=== PATIENT | male | born 1945 | race Caucasian/White ===

== ENCOUNTER → 2017-09-03 | Outpatient (CLI) | payer OTHER ==
[~2017-09-03] MED LIST: ASPI325 PO; ASPI81CH PO; ATOR40TA; Amlodipine Besy10 MG PO; BUDE6HFA INH; CHOL10002 PO; CLOP75 PO; DOCU100 PO; FLUSAL2505; FLUT1DIS5 INH; Flonase 0.05% N16 GM INH; GLIM2 PO; Janumet 50-5001 EACH; LEVSOD75 PO; LOSA50; LOSA50 PO; TRADJENTA5 MG PO
[2017-09-03 14:00] LABS: BASOPHILS ABSOLUTE AUTO 0.22 K/mm3 (0.00-0.23); BASOPHILS PERCENT AUTO 2 % (0-2); EOSINOPHILS PERCENT AUTO 15 % (0-6); Hematocrit 37.7 % (37.0-53.0); Hemoglobin 12.7 g/dL (13.5-17.5); IMMATURE GRAN ABSOLUTE AUTO 0.03 K/mm3 (0.00-0.10); IMMATURE GRAN PERCENT AUTO 0 % (0-1); LYMPHOCYTES ABSOLUTE AUTO 1.97 K/mm3 (0.84-5.20); LYMPHOCYTES PERCENT AUTO 22 % (21-46); MONOCYTES ABSOLUTE AUTO 0.91 K/mm3 (0.16-1.47); MONOCYTES PERCENT AUTO 10 % (4-13); Mean Corpuscular HGB 31.4 pg (26.0-34.0); Mean Corpuscular HGB Conc 33.7 g/dL (31.5-36.5); Mean Corpuscular Volume 93 fL (80-100); NEUTROPHILS ABSOLUTE AUTO 4.56 K/mm3 (1.96-9.15); NEUTROPHILS PERCENT AUTO 50 % (41-73); Platelet Count 252 K/mm3 (150-400); RDW Coefficient Variation 13.6 % (11.7-14.2); RDW Standard Deviation 46.5 fL (35.1-46.3); Red Blood Cell Count 4.04 M/mm3 (4.30-5.90); White Blood Cell Count 9.09 K/mm3 (4.00-11.30)
[2017-09-03 14:12] LABS: Albumin, Blood 3.3 g/dL (3.4-5.0); Albumin/Globulin Ratio 0.9 (0.8-1.8); Bilirubin, Total 0.7 mg/dL (0.1-1.0); Calcium, Blood 8.3 mg/dL (8.5-10.1); Creatinine, Blood 1.54 mg/dL (0.60-1.20); Globulin, Blood 3.8 g/dL (2.2-4.0); Total Protein, Blood 7.1 g/dL (6.4-8.2); Troponin I 0.032 ng/mL (0.000-0.040)
== END | disposition home or self-care (01) ==
LOC: LAB EV 13:53 → LAB SHORT 13:53
PROVIDERS: General Practice
DX: R06.02 Shortness of breath (principal)
CPT/HCPCS: 80053; 82550; 83880; 84484; 85025

== ENCOUNTER 2017-09-14 07:24 | Day surgery (SDC) | payer OTHER ==
[~2017-09-14] VITALS: Ht 175.3 cm; Wt 79.0 kg
[~2017-09-14 07:24] MED LIST changes: -ASPI81CH PO; -BUDE6HFA INH; -CLOP75 PO; -DOCU100 PO; -FLUT1DIS5 INH
[2017-09-14] MEDS ORDERED: FLUT1DIS5 INH (07:48)
== END 2017-09-14 14:15 | disposition home or self-care (01) ==
LOC: MHTC 07:24
PROC: B2111ZZ Fluoroscopy of Multiple Coronary Arteries using Low Osmolar Contrast (ICD-10-PCS; principal; 2017-09-14)
DX: I35.0 Nonrheumatic aortic (valve) stenosis (principal); I25.10 Atherosclerotic heart disease of native coronary artery without angina pectoris; I11.0 Hypertensive heart disease with heart failure; I50.20 Unspecified systolic (congestive) heart failure; E11.9 Type 2 diabetes mellitus without complications; I42.8 Other cardiomyopathies; E78.5 Hyperlipidemia, unspecified; I67.9 Cerebrovascular disease, unspecified; E03.9 Hypothyroidism, unspecified; N40.0 Benign prostatic hyperplasia without lower urinary tract symptoms; R59.9 Enlarged lymph nodes, unspecified; Z79.899 Other long term (current) drug therapy; Z79.82 Long term (current) use of aspirin; Z79.84 Long term (current) use of oral hypoglycemic drugs; Z87.891 Personal history of nicotine dependence
CPT/HCPCS: 82947; 93454; 99152; 99153; C1769; C1894; J0690; J1644; J2250; J3010; J7030; Q9967

== ENCOUNTER 2017-10-12 21:15 | Emergency (ER) | payer OTHER ==
[~2017-10-12] VITALS: Ht 172.7 cm; Wt 74.8 kg
[~2017-10-12 21:15] MED LIST changes: +FLUT1DIS5 INH
[2017-10-12] MEDS ORDERED: ASPI81CH PO (22:03)
[2017-10-12] MEDS ORDERED: BUDE6HFA INH (22:04)
[2017-10-12] MEDS ORDERED: CLOP75 PO (22:04)
[2017-10-12] MEDS ORDERED: DOCU100 PO (22:05)
[2017-10-12 22:59] LABS: BASOPHILS ABSOLUTE AUTO 0.18 K/mm3 (0.00-0.23); BASOPHILS PERCENT AUTO 2 % (0-2); EOSINOPHILS ABSOLUTE AUTO 0.71 K/mm3 (0.00-0.68); EOSINOPHILS PERCENT AUTO 7 % (0-6); Hematocrit 30.7 % (37.0-53.0); Hemoglobin 10.1 g/dL (13.5-17.5); IMMATURE GRAN ABSOLUTE AUTO 0.03 K/mm3 (0.00-0.10); IMMATURE GRAN PERCENT AUTO 0 % (0-1); LYMPHOCYTES ABSOLUTE AUTO 1.96 K/mm3 (0.84-5.20); LYMPHOCYTES PERCENT AUTO 20 % (21-46); MONOCYTES ABSOLUTE AUTO 0.86 K/mm3 (0.16-1.47); MONOCYTES PERCENT AUTO 9 % (4-13); Mean Corpuscular HGB 30.8 pg (26.0-34.0); Mean Corpuscular HGB Conc 32.9 g/dL (31.5-36.5); Mean Corpuscular Volume 94 fL (80-100); Mean Platelet Volume 10.9 fL (9.1-12.4); NEUTROPHILS ABSOLUTE AUTO 6.17 K/mm3 (1.96-9.15); NEUTROPHILS PERCENT AUTO 62 % (41-73); Platelet Count 184 K/mm3 (150-400); RDW Coefficient Variation 13.2 % (11.7-14.2); RDW Standard Deviation 45.8 fL (35.1-46.3); Red Blood Cell Count 3.28 M/mm3 (4.30-5.90); White Blood Cell Count 9.91 K/mm3 (4.00-11.30)
== END 2017-10-13 00:07 | disposition home or self-care (01) ==
LOC: ER 21:15
PROVIDERS: Emergency Medicine
DX: I97.618 Postprocedural hemorrhage of a circulatory system organ or structure following other circulatory system procedure (principal); E11.9 Type 2 diabetes mellitus without complications; Z79.899 Other long term (current) drug therapy; Z79.82 Long term (current) use of aspirin; Z79.84 Long term (current) use of oral hypoglycemic drugs
CPT/HCPCS: 36415; 85025; 93926; 99284

== ENCOUNTER → 2017-12-20 | Outpatient (CLI) | payer OTHER ==
[~2017-12-20] MED LIST changes: +ASPI81CH PO; +BUDE6HFA INH; +CLOP75 PO; +DOCU100 PO
== END ==
LOC: LAB SHORT 16:00 → LAB EV 16:00
DX: E11.22 Type 2 diabetes mellitus with diabetic chronic kidney disease (principal); N18.9 Chronic kidney disease, unspecified
CPT/HCPCS: 82043

== ENCOUNTER 2018-12-06 10:47 | Day surgery (SDC) | payer OTHER ==
[~2018-12-06] VITALS: Ht 175.3 cm; Wt 171.6 kg
[~2018-12-06 10:47] MED LIST changes: -ATOR40TA; +ATOR40TA PO; +Amlodipine Bes2.5 MG PO; +FLUT1DIS8 INH; +LEVSOD100 PO; +METO25ER PO
--- NOTE | 2018-12-06 11:31 | NUR ---
12/06/18 1131 Inderjit Millan DURING PREVIOUS COLONOSCOPY IN 2014 FENTANYL/ VERSED SEDATION USED. THIS WAS PREVIOUS TO TAVR SX IN 09/[address] MANNING NOTIFIED. PT PRE-OP VSS. PER DR MANNING OK TO PROCEED WITH NURSE ADMINISTERED PROPOFOL DEEP SEDATION PER DR. MANNING.
--- NOTE | 2018-12-06 12:00 | NUR ---
12/06/18 1200 Grace Wray INJECTED INTO IRRIGATION DONNA PER DR COSTA
== END 2018-12-06 13:04 | disposition home or self-care (01) ==
LOC: ORSCSDS 10:47
PROVIDERS: Internal Medicine Gastroenterology
PROC: 0DBM8ZX Excision of Descending Colon, Via Natural or Artificial Opening Endoscopic, Diagnostic (ICD-10-PCS; principal; 2018-12-06 12:00)
PROC: 0DBL8ZX Excision of Transverse Colon, Via Natural or Artificial Opening Endoscopic, Diagnostic (ICD-10-PCS; principal; 2018-12-06 12:00)
PROC: 0DBK8ZX Excision of Ascending Colon, Via Natural or Artificial Opening Endoscopic, Diagnostic (ICD-10-PCS; principal; 2018-12-06 12:00)
DX: K62.5 Hemorrhage of anus and rectum (principal); D12.2 Benign neoplasm of ascending colon; D12.3 Benign neoplasm of transverse colon; D12.4 Benign neoplasm of descending colon; K64.8 Other hemorrhoids; K57.30 Diverticulosis of large intestine without perforation or abscess without bleeding; Z86.010 Personal history of colon polyps; E11.9 Type 2 diabetes mellitus without complications; I10 Essential (primary) hypertension; E78.5 Hyperlipidemia, unspecified; E03.9 Hypothyroidism, unspecified; I25.10 Atherosclerotic heart disease of native coronary artery without angina pectoris; J45.909 Unspecified asthma, uncomplicated; Z79.01 Long term (current) use of anticoagulants; Z79.84 Long term (current) use of oral hypoglycemic drugs; Z79.899 Other long term (current) drug therapy; Z87.891 Personal history of nicotine dependence
CPT/HCPCS: 82947; 88305; J1980; J2704; J7120

== ENCOUNTER 2018-12-11 06:03 | Inpatient (IN) | payer OTHER ==
[~2018-12-11] VITALS: Ht 175.3 cm; Wt 78.5 kg
[~2018-12-11 06:03] MED LIST changes: +Amaryl1 MG PO; -Flonase 0.05% N16 GM INH; -GLIM2 PO; -LOSA50 PO; +LOSARTAN POTASS25 MG PO
[2018-12-11 06:57] LABS: BASOPHILS ABSOLUTE AUTO 0.18 K/mm3 (0.00-0.23); BASOPHILS PERCENT AUTO 2 % (0-2); EOSINOPHILS ABSOLUTE AUTO 1.17 K/mm3 (0.00-0.68); EOSINOPHILS PERCENT AUTO 11 % (0-6); Hematocrit 43.9 % (37.0-53.0); Hemoglobin 14.3 g/dL (13.5-17.5); IMMATURE GRAN ABSOLUTE AUTO 0.02 K/mm3 (0.00-0.10); IMMATURE GRAN PERCENT AUTO 0 % (0-1); LYMPHOCYTES ABSOLUTE AUTO 1.49 K/mm3 (0.84-5.20); LYMPHOCYTES PERCENT AUTO 14 % (21-46); MONOCYTES ABSOLUTE AUTO 0.78 K/mm3 (0.16-1.47); MONOCYTES PERCENT AUTO 7 % (4-13); Mean Corpuscular HGB 30.8 pg (26.0-34.0); Mean Corpuscular HGB Conc 32.6 g/dL (31.5-36.5); Mean Corpuscular Volume 95 fL (80-100); Mean Platelet Volume 10.3 fL (9.1-12.4); NEUTROPHILS ABSOLUTE AUTO 6.86 K/mm3 (1.96-9.15); NEUTROPHILS PERCENT AUTO 65 % (41-73); Platelet Count 217 K/mm3 (150-400); RDW Coefficient Variation 12.8 % (11.7-14.2); RDW Standard Deviation 44.3 fL (35.1-46.3); Red Blood Cell Count 4.64 M/mm3 (4.30-5.90)
[2018-12-11 07:10] LABS: Albumin, Blood 3.6 g/dL (3.4-5.0); Albumin/Globulin Ratio 0.9 (0.8-1.8); Bilirubin, Total 0.5 mg/dL (0.1-1.0); Bun/Creatinine Ratio 17.5 (12.0-20.0); Calcium, Blood 8.8 mg/dL (8.5-10.1); Creatinine, Blood 1.37 mg/dL (0.60-1.20); Globulin, Blood 4.1 g/dL (2.2-4.0); Potassium, Blood 4.1 mmol/L (3.5-5.5); Total Protein, Blood 7.7 g/dL (6.4-8.2)
[2018-12-11] MEDS ORDERED: Flonase 0.05% N16 GM (13:46)
--- NOTE | 2018-12-11 17:05 | NUR ---
SUMMARY PT ADMITTED FROM THE ER FOR POSSIBLE CVA, PT ABLE TO STAND-PIVOT TRANSFER FROM THE GURNEY TO THE BED, GAIT APPEARED WEAK, PT'S CATERPILLAR DRIVER ARE STRONG WITH THE R HAND BEING SLIGHTLY WEAKER THAN THE LEFT, FEET ARE EQUALLY STRONG, PUPILS ARE EQUAL AND REACTIVE, PT'S SPEECH IS SLURRED AND PT SEEMS TO HAVE SOME EXPRESSIVE APHASIA, MULTIPLE FAMILY MEMBERS HAVE BEEN IN TO VISIT, PT ORIENTED TO THE ROOM AND CALL SYSTEM, EDUCATED THE PT ABOUT FALL PREVENTION AND THE IMPORTANCE OF USING THE CALL LIGHT, VS, NO ACUTE CHANGES, WILL CONT TO MONITOR
[2018-12-12 05:23] LABS: BASOPHILS ABSOLUTE AUTO 0.15 K/mm3 (0.00-0.23); BASOPHILS PERCENT AUTO 2 % (0-2); EOSINOPHILS ABSOLUTE AUTO 0.89 K/mm3 (0.00-0.68); EOSINOPHILS PERCENT AUTO 9 % (0-6); IMMATURE GRAN ABSOLUTE AUTO 0.02 K/mm3 (0.00-0.10); IMMATURE GRAN PERCENT AUTO 0 % (0-1); LYMPHOCYTES ABSOLUTE AUTO 1.66 K/mm3 (0.84-5.20); LYMPHOCYTES PERCENT AUTO 17 % (21-46); MONOCYTES ABSOLUTE AUTO 1.01 K/mm3 (0.16-1.47); MONOCYTES PERCENT AUTO 10 % (4-13); Mean Corpuscular HGB 30.9 pg (26.0-34.0); Mean Corpuscular HGB Conc 33.3 g/dL (31.5-36.5); Mean Corpuscular Volume 93 fL (80-100); Mean Platelet Volume 10.4 fL (9.1-12.4); NEUTROPHILS ABSOLUTE AUTO 6.36 K/mm3 (1.96-9.15); NEUTROPHILS PERCENT AUTO 63 % (41-73); Platelet Count 207 K/mm3 (150-400); RDW Coefficient Variation 12.6 % (11.7-14.2); RDW Standard Deviation 42.9 fL (35.1-46.3); Red Blood Cell Count 4.53 M/mm3 (4.30-5.90); White Blood Cell Count 10.09 K/mm3 (4.00-11.30)
[2018-12-12 05:38] LABS: International Normalized Ratio 0.99; Prothrombin Time Results 10.5 Sec (9.7-11.5)
[2018-12-12 05:48] LABS: Alanine Aminotransfer (ALT/SGP 27 U/L (12-78); Albumin, Blood 3.2 g/dL (3.4-5.0); Albumin/Globulin Ratio 0.9 (0.8-1.8); Alk Phos 86 U/L (50-136); Anion Gap 10 mmol/L (6-16); Aspartate Aminotrans (AST/SGOT 3 U/L (12-37); Bilirubin, Total 0.6 mg/dL (0.1-1.0); Blood Urea Nitrogen 22 mg/dL (8-24); Bun/Creatinine Ratio 16.5 (12.0-20.0); CHOL/HDL RATIO 2.5; CO2, Blood 23 mmol/L (21-32); Calcium, Blood 8.5 mg/dL (8.5-10.1); Chloride, Blood 108 mmol/L (98-108); Cholesterol 118 mg/dL (50-200); Creatinine, Blood 1.33 mg/dL (0.60-1.20); Globulin, Blood 3.7 g/dL (2.2-4.0); Glomerular Filtration Rate 56 (60-); Glucose, Blood 173 mg/dL (70-99); HDL Cholesterol 48 mg/dL (>39); LDL/HDL RATIO 1.1; Low Density Lipoprotein Chol 52 mg/dL (0-110); Potassium, Blood 4.2 mmol/L (3.5-5.5); Sodium, Blood 141 mmol/L (136-145); Total Protein, Blood 6.9 g/dL (6.4-8.2); Triglycerides 90 mg/dL (30-160); Very Low Density Lipoprot Chol 18 mg/dL (6-32)
--- NOTE | 2018-12-12 06:17 | NUR ---
SHIFT SUMMARY PT IS ALERT AND ORIENTED TO SELF, DATE, AND PLACE. RIGHT CONE RUNNER IS VERY WEAK. PT UNABLE TO LIFT RIGHT ARM. THIS APPEARS TO BE THE ONLY DEFICIT. PATIENT CN MOVE BOTH LEGS AND LEFT ARM APPROPRIATELY. PATIENT USES URINAL WITH ASSITANCE. NO NEW CHANGES THROUGHOUT THE NIGHT. PT SLEPT OFF AND ON. VITAL SIGNS STABLE.
--- NOTE | 2018-12-12 18:39 | NUR ---
1718 PT TRANSFERED TO RM 302 FROM RM 336 TO BETTER ACCOMADATE LARGE FAMILY. REPORT GIVE OCTAVIO BEDSIDE BY Rafi LEMUS RN. FAMILY AT BEDSIDE.
--- NOTE | 2018-12-12 19:22 | NUR ---
PATIENT TRANSFER: PATIENT TRANSFERRED TO ROOM 302 THIS SHIFT. PT A&O; HX CVA c EXPRESSIVE APHASIA; R ARM WEAK; CALM AND COOPERATIVE WITH CARE. NO C/O PAIN THIS SHIFT. TELE IN PLACE; SR @ 75 PER TONGUE LINING STITCHER DURING SHIFT ASSESSMENT. PT & OT LOLA. REPORT GIVEN TO ONCOMING RN.
--- NOTE | 2018-12-13 04:52 | NUR ---
Shift summary: pt able to sleep most of shift with no c/o discomfort. Right arm remains flacid. Pt can bear weight on right leg but uses the left sided walker. Pt is a one person transfer. Family remains at bedside. Pt on telemetry- sinus rhythm with occasional pvc's. Speech slightly slurred. Is aspiration risk. Pt able to swallow pills.
--- NOTE | 2018-12-13 18:33 | NUR ---
SHIFT SUMMARY. A&OX3, PLEASANT. SLURRED SPEACH, R FACIAL DROOP. R HAND FLACCIDITY ALTHOUGH HE WAS ABLE TO MOVE HAND AND ARM WITH THERAPY WITH ALOT OF ENCOURAGEMENT. R LEG WEAKNESS. UP TO CHAIR FOR ALL MEALS AND FLUIDS SECONDARY TO ASPIRATION PRECAUTIONS. PT/OT REPORT THAT PT HAS MADE SOME PROGRESS. PT IS MOTIVATED. FAMILY AT BEDSIDE INTERMITTENTLY DURING SHIFT. PT DENIES PAIN, SOB, N/V. NO NEW CHANGES. PLAN IS FOR D/C TO INPATIENT REHAB WHEN BED IS AVAILABLE. DR. CAMPOS REPORTED THAT PT IS OTHERWISE READY FOR D/C, AND D/C ORDERS HAVE BEEN PLACED. NO NEW CHANGES OR CONCERNS.
--- NOTE | 2018-12-14 04:37 | NUR ---
Shift summary: Pt slept most of shift with no c/o discomfort. Right arm remains flaccid but right leg strong and can bear weight. Pt does well using walker to get to bathroom. Pt anticipating going to rehab today if bed available. Family at bedside. Blood sugar at HS was 190 and did not require coverage.
--- NOTE | 2018-12-14 09:05 | NUR ---
AMARYL NOT GIVEN YET BECAUSE IT IS NOT HERE. LOVENOX NOT GIVEN YET BECAUSE HE HAS BEEN UP IN THE CHAIR FOR BREAKFAST AND NOW WORKING WITH OT. NO WORD YET FROM BRIDGES SUPERVISOR OR MD. NO COMPLAINTS. R ARM CAN DRAG ON THE BED. IT'S WEAKNESS AND HIS SLURRED SPEACH ARE HIS MAIN DEFICITS.
--- NOTE | 2018-12-14 10:54 | NUR ---
HE HAS BEEN SITTING UP IN A CHAIR SINCE BREAKFAST TIME. HE HAS 2 VISITORS PRESENT. NEWS ON THE TV. HE ALREADY WORKED WITH OT. NO COMPLAINTS.
[2018-12-14] MEDS ORDERED: ACET325 PO (14:12)
[2018-12-14] MEDS ORDERED: ASPI325 PO (14:18)
[2018-12-14] MEDS ORDERED: SENN187 PO (14:19)
[2018-12-14] MEDS ORDERED: GENTLE LAXATIVE5 MG PO (14:19)
--- NOTE | 2018-12-14 14:31 | NUR ---
MORE PROGRESS ON DISCHARGE PROCESS. TRIED JUST NOW TO CALL REPORT. THEY WILL CALL ME BACK. FAMILY WILL TRANSPORT HIM TO THE FACILITY IN [place].
--- NOTE | 2018-12-14 16:20 | NUR ---
DISCHARGED WITH PACKET TO [facility]. I JUST CALLED REPORT TO [phone]. HIS FAMILY IS DRIVING HIM THERE. HE WORKED WITH PT A COUPLE OF HRS AGO. NO DISTRESS.
== END 2018-12-14 16:16 | DRG 65 ==
LOC: ER 06:03 → MEDS 08:30 → ERHOLD 08:30 → MEDS 13:10
PROVIDERS: Emergency Medicine; ADMIT Internal Medicine Gastroenterology
DX: I63.9 Cerebral infarction, unspecified (principal); G81.91 Hemiplegia, unspecified affecting right dominant side; R47.01 Aphasia; R29.810 Facial weakness; E78.5 Hyperlipidemia, unspecified; I10 Essential (primary) hypertension; E11.9 Type 2 diabetes mellitus without complications; Z95.2 Presence of prosthetic heart valve; Z87.891 Personal history of nicotine dependence; I25.10 Atherosclerotic heart disease of native coronary artery without angina pectoris; E03.9 Hypothyroidism, unspecified; Z95.5 Presence of coronary angioplasty implant and graft; J45.909 Unspecified asthma, uncomplicated; R40.2412 Glasgow coma scale score 13-15, at arrival to emergency department
CPT/HCPCS: 36415; 70450; 71045; 80053; 80061; 82947; 83036; 83735; 84443; 85025; 85610; 92507; 92523; 92526; 92610; 93005; 93010; 93308; 93321; 93880; 96365; 96366; 96372-59; 97112; 97116; 97162; 97166; 97530; 99285-25; A9270; J1650; J3480

== ENCOUNTER → 2021-03-15 | Outpatient (CLI) | payer OTHER ==
[~2021-03-15] MED LIST changes: +ACET325 PO; +Flonase 0.05% N16 GM; +GENTLE LAXATIVE5 MG PO; +SENN187 PO
[2021-03-16 13:45] LABS: Stool Occult Bld Immuno 1 Negative (NEGATIVE)
== END | disposition home or self-care (01) ==
LOC: OLS 15:22 → LAB SHORT 15:22
PROVIDERS: Family Medicine
DX: Z12.11 Encounter for screening for malignant neoplasm of colon (principal)
CPT/HCPCS: 82274

== ENCOUNTER → 2022-05-02 | Outpatient (CLI) | payer OTHER | END | disposition home or self-care (01) | LOC: LAB 14:48 → LAB SHORT 14:48 | DX: N39.0 Urinary tract infection, site not specified (principal) | CPT/HCPCS: 87077; 87086; 87186 ==

== ENCOUNTER → 2022-10-12 | Outpatient (CLI) | payer OTHER ==
[2022-10-12 15:07] LABS: Source, Urine Clean Catch
[2022-10-12 15:10] LABS: BASOPHILS PERCENT AUTO 1 % (0-2); EOSINOPHILS ABSOLUTE AUTO 0.43 K/mm3 (0.00-0.68); EOSINOPHILS PERCENT AUTO 6 % (0-6); Hematocrit 36.9 % (37.0-53.0); Hemoglobin 12.2 g/dL (13.5-17.5); IMMATURE GRAN ABSOLUTE AUTO 0.01 K/mm3 (0.00-0.10); IMMATURE GRAN PERCENT AUTO 0 % (0-1); LYMPHOCYTES ABSOLUTE AUTO 0.82 K/mm3 (0.84-5.20); LYMPHOCYTES PERCENT AUTO 12 % (21-46); MONOCYTES ABSOLUTE AUTO 0.88 K/mm3 (0.16-1.47); MONOCYTES PERCENT AUTO 13 % (4-13); Mean Corpuscular HGB 31.6 pg (26.0-34.0); Mean Corpuscular HGB Conc 33.1 g/dL (31.5-36.5); Mean Corpuscular Volume 96 fL (80-100); Mean Platelet Volume 10.6 fL (9.1-12.4); NEUTROPHILS ABSOLUTE AUTO 4.74 K/mm3 (1.96-9.15); NEUTROPHILS PERCENT AUTO 68 % (41-73); Platelet Count 174 K/mm3 (150-400); RDW Coefficient Variation 15.9 % (11.7-14.2); RDW Standard Deviation 55.8 fL (35.1-46.3); Red Blood Cell Count 3.86 M/mm3 (4.30-5.90); White Blood Cell Count 6.98 K/mm3 (4.00-11.30)
[2022-10-12 15:19] LABS: Albumin, Blood 3.1 g/dL (3.4-5.0); Albumin/Globulin Ratio 0.7 (0.8-1.8); Bilirubin, Total 0.5 mg/dL (0.1-1.0); Bun/Creatinine Ratio 12.2 (12.0-20.0); Calcium, Blood 8.4 mg/dL (8.5-10.1); Creatinine, Blood 1.96 mg/dL (0.60-1.20); Globulin, Blood 4.4 g/dL (2.2-4.0); Potassium, Blood 3.9 mmol/L (3.5-5.5); Total Protein, Blood 7.5 g/dL (6.4-8.2)
[2022-10-12 15:27] LABS: Red Blood Cells, Urine 0-2 /hpf (0-2); White Blood Cells, Urine 0-2 /hpf (0-5)
[2022-10-12 15:28] LABS: Amorphous Light (0-Heavy); Bacteria Not Seen /hpf; Squamous Epithelial Cells Few /hpf (Few)
== END | disposition home or self-care (01) ==
LOC: LAB SHORT 15:03 → LAB 15:03
PROVIDERS: Physician Assistant Medical
DX: R32 Unspecified urinary incontinence (principal)
CPT/HCPCS: 80053; 81015; 85025

== ENCOUNTER → 2022-10-19 | Outpatient (CLI) | payer OTHER ==
[2022-10-20 06:23] LABS: Percent Saturation 19.2 % (20.0-50.0)
== END | disposition home or self-care (01) ==
LOC: LAB 11:19 → LAB SHORT 11:19
PROVIDERS: Internal Medicine Hematology & Oncology
DX: D50.9 Iron deficiency anemia, unspecified (principal)
CPT/HCPCS: 82728; 83540; 83550

== ENCOUNTER → 2022-10-21 | Outpatient (CLI) | payer OTHER ==
[2022-10-21 16:10] LABS: BASOPHILS ABSOLUTE AUTO 0.09 K/mm3 (0.00-0.23); BASOPHILS PERCENT AUTO 1 % (0-2); EOSINOPHILS ABSOLUTE AUTO 0.33 K/mm3 (0.00-0.68); EOSINOPHILS PERCENT AUTO 3 % (0-6); Hematocrit 34.9 % (37.0-53.0); Hemoglobin 11.5 g/dL (13.5-17.5); IMMATURE GRAN ABSOLUTE AUTO 0.03 K/mm3 (0.00-0.10); IMMATURE GRAN PERCENT AUTO 0 % (0-1); LYMPHOCYTES ABSOLUTE AUTO 0.65 K/mm3 (0.84-5.20); LYMPHOCYTES PERCENT AUTO 7 % (21-46); MONOCYTES ABSOLUTE AUTO 0.77 K/mm3 (0.16-1.47); MONOCYTES PERCENT AUTO 8 % (4-13); Mean Corpuscular HGB 31.8 pg (26.0-34.0); Mean Corpuscular Volume 96 fL (80-100); Mean Platelet Volume 9.8 fL (9.1-12.4); NEUTROPHILS ABSOLUTE AUTO 7.94 K/mm3 (1.96-9.15); NEUTROPHILS PERCENT AUTO 81 % (41-73); Platelet Count 286 K/mm3 (150-400); RDW Coefficient Variation 15.8 % (11.7-14.2); RDW Standard Deviation 55.6 fL (35.1-46.3); Red Blood Cell Count 3.62 M/mm3 (4.30-5.90); White Blood Cell Count 9.81 K/mm3 (4.00-11.30)
[2022-10-21 16:24] LABS: Albumin, Blood 2.8 g/dL (3.4-5.0); Albumin/Globulin Ratio 0.6 (0.8-1.8); Bilirubin, Total 0.4 mg/dL (0.1-1.0); Bun/Creatinine Ratio 13.1 (12.0-20.0); Calcium, Blood 8.3 mg/dL (8.5-10.1); Creatinine, Blood 1.99 mg/dL (0.60-1.20); Globulin, Blood 4.4 g/dL (2.2-4.0); Potassium, Blood 4.3 mmol/L (3.5-5.5); Total Protein, Blood 7.2 g/dL (6.4-8.2)
== END | disposition home or self-care (01) ==
LOC: LAB 15:58 → LAB SHORT 15:58
PROVIDERS: Physician Assistant
DX: N18.9 Chronic kidney disease, unspecified (principal); D63.8 Anemia in other chronic diseases classified elsewhere; R50.9 Fever, unspecified; Z79.899 Other long term (current) drug therapy
CPT/HCPCS: 80053; 82607; 82746; 85025

== ENCOUNTER 2022-11-14 21:09 | Inpatient (IN) | payer OTHER ==
[~2022-11-14] VITALS: Ht 175.3 cm; Wt 71.8 kg
[2022-11-14 21:44] LABS: BASOPHILS ABSOLUTE AUTO 0.13 K/mm3 (0.00-0.23); BASOPHILS PERCENT AUTO 1 % (0-2); EOSINOPHILS ABSOLUTE AUTO 0.13 K/mm3 (0.00-0.68); EOSINOPHILS PERCENT AUTO 1 % (0-6); Hematocrit 30.7 % (37.0-53.0); IMMATURE GRAN ABSOLUTE AUTO 0.06 K/mm3 (0.00-0.10); IMMATURE GRAN PERCENT AUTO 0 % (0-1); LYMPHOCYTES PERCENT AUTO 3 % (21-46); MONOCYTES ABSOLUTE AUTO 0.77 K/mm3 (0.16-1.47); MONOCYTES PERCENT AUTO 5 % (4-13); Mean Corpuscular HGB 30.8 pg (26.0-34.0); Mean Corpuscular HGB Conc 32.6 g/dL (31.5-36.5); Mean Corpuscular Volume 95 fL (80-100); Mean Platelet Volume 9.6 fL (9.1-12.4); NEUTROPHILS ABSOLUTE AUTO 13.46 K/mm3 (1.96-9.15); NEUTROPHILS PERCENT AUTO 90 % (41-73); Platelet Count 388 K/mm3 (150-400); RDW Coefficient Variation 15.4 % (11.7-14.2); RDW Standard Deviation 53.3 fL (35.1-46.3); Red Blood Cell Count 3.25 M/mm3 (4.30-5.90); White Blood Cell Count 14.95 K/mm3 (4.00-11.30)
[2022-11-14] MEDS ORDERED: TAMSULOSIN HCL0.4 M1 PO (21:53)
[2022-11-14] MEDS ORDERED: AMLODIPINE BESYL5 MG PO (21:53)
[2022-11-14] MEDS ORDERED: METFORMIN HCL500 M2 PO (21:54)
[2022-11-14 22:02] LABS: Albumin, Blood 2.4 g/dL (3.4-5.0); Albumin/Globulin Ratio 0.5 (0.8-1.8); Bilirubin, Total 0.4 mg/dL (0.1-1.0); Bun/Creatinine Ratio 21.2 (12.0-20.0); Calcium, Blood 8.4 mg/dL (8.5-10.1); Creatinine, Blood 1.51 mg/dL (0.60-1.20); Globulin, Blood 4.9 g/dL (2.2-4.0); Potassium, Blood 4.1 mmol/L (3.5-5.5); Total Protein, Blood 7.3 g/dL (6.4-8.2)
[2022-11-15 00:02] VITALS: BP 130/60
--- NOTE | 2022-11-15 00:43 | NUR ---
PATIENT IS A NEW ADMIT FROM THE ED. AXOX 4 WITH SLURRED SPEECH AND RIGHT SIDE DEFICITS. RIGHT ARM AND LEG WEAKNESS WITH HX STROKE. SBA TRANSFER FROM W/C TO BED. IV ABX INFUSING FROM ED. ON ROOM AIR. REPORTED CHRONIC RIGHT HIP PAIN. DENIES CHEST PAIN, SOB, AND N/V. SPOUSE PRESENT AND FAMILY ON ADMIT. LOW GRADE TEMP 99.2 ON ADMIT. PATIENT AND FAMILY ORIENTED TO ROOM AND CALL LIGHT SYSTEM. URINAL PROVIDED PER SPOUSE REQUEST. PATIENT REPORTS WILL WATCH TV AFTER FAMILY LEAVES. CALL LIGHT IN REACH. WCTM.
[2022-11-15 02:37] VITALS: BP 129/58
--- NOTE | 2022-11-15 04:05 | NUR ---
SHIFT SUMMARY PATIENT HAD NO ACUTE CHANGES. AXOX 3-4 AND ONE ASSIST TO BR. CHEESH-NA. USES URINAL WITH ASSIST AT BEDSIDE. DENIES CHEST PAIN, SOB, AND N/V. VSS/LOW GRADE TEMP 99.2 ON ADMIT AND 99.7 ON SECOND SET OF VITALS. REPORTED RIGHT HIP PAIN X TWO AND TYLENOL 650 MG GIVEN WITH MINIMAL EFFECT. ULTRAM 50 MG GIVEN NEXT TIME. PIV REMAINS INTACT. COOPERATIVE WITH CARE. CALL LIGHT IN REACH. BED IN LOWEST POSITION AND ALARM ACTIVATED. WILL CONTINUE TO MONITOR UNTIL DAY SHIFT NURSE ASSUMES CARE.
[2022-11-15 05:19] LABS: BASOPHILS ABSOLUTE AUTO 0.08 K/mm3 (0.00-0.23); BASOPHILS PERCENT AUTO 1 % (0-2); EOSINOPHILS ABSOLUTE AUTO 0.01 K/mm3 (0.00-0.68); EOSINOPHILS PERCENT AUTO 0 % (0-6); Hematocrit 27.1 % (37.0-53.0); Hemoglobin 8.9 g/dL (13.5-17.5); IMMATURE GRAN PERCENT AUTO 1 % (0-1); LYMPHOCYTES ABSOLUTE AUTO 0.23 K/mm3 (0.84-5.20); LYMPHOCYTES PERCENT AUTO 1 % (21-46); MONOCYTES PERCENT AUTO 4 % (4-13); Mean Corpuscular HGB 31.1 pg (26.0-34.0); Mean Corpuscular HGB Conc 32.8 g/dL (31.5-36.5); Mean Corpuscular Volume 95 fL (80-100); Mean Platelet Volume 9.9 fL (9.1-12.4); NEUTROPHILS ABSOLUTE AUTO 16.03 K/mm3 (1.96-9.15); NEUTROPHILS PERCENT AUTO 94 % (41-73); Platelet Count 311 K/mm3 (150-400); RDW Coefficient Variation 15.1 % (11.7-14.2); RDW Standard Deviation 53.7 fL (35.1-46.3); Red Blood Cell Count 2.86 M/mm3 (4.30-5.90); White Blood Cell Count 17.05 K/mm3 (4.00-11.30)
[2022-11-15 05:42] LABS: Albumin, Blood 2.1 g/dL (3.4-5.0); Albumin/Globulin Ratio 0.5 (0.8-1.8); Bilirubin, Total 0.5 mg/dL (0.1-1.0); Bun/Creatinine Ratio 22.7 (12.0-20.0); Calcium, Blood 8.1 mg/dL (8.5-10.1); Creatinine, Blood 1.54 mg/dL (0.60-1.20); Globulin, Blood 4.2 g/dL (2.2-4.0); Potassium, Blood 3.8 mmol/L (3.5-5.5); Total Protein, Blood 6.3 g/dL (6.4-8.2)
[2022-11-15 07:22] VITALS: BP 116/76
[2022-11-15] MEDS ORDERED: ASPI81CH PO (12:36)
[2022-11-15] MEDS ORDERED: PIOG30 PO (12:42)
[2022-11-15 16:03] VITALS: BP 119/69
--- NOTE | 2022-11-15 19:13 | NUR ---
SHIFT SUMMARY- PT IS ALERT AND ORIENTED X4. FAMILY HAS BEEN AT BEDSIDE THROUGHOUT THE DAY. PT HAS RIGHT SIDE DEFECIT FROM PAST CVA. CALLS APPROPRIATLEY. ABLE TO WALK TO BATHROOM WITH USE OF WALKER. PT IS HARD OF HEARING. NO ACUTE CHANGES THIS SHIFT.
[2022-11-15 19:28] VITALS: BP 115/69
[2022-11-16] VITALS (17 sets, daily range): BP systolic 109–136; BP diastolic 64–79
--- NOTE | 2022-11-16 04:04 | NUR ---
SHIFT SUMMARY PATIENT HAD NO ACUTE CHANGES. AXOX 4 AND SBA TO BR WITH RIGHT SIDE WEAKNESS. HX STROKE. SLURRED SPEECH. DENIES CHEST PAIN, SOB, AND N/V. ON ROOM AIR. PIV REMAINS INTACT. IV ABX INFUSED. VSS/LOW GRADE TEMP 99.1. CBG 166. USES URINAL AT BEDSIDE. REPORTED RIGHT HIP PAIN AND ULTRAM 100 MG GIVEN PER EMAR. FAMILY PRESENT AT SHIFT CHANGE. CALL LIGHT IN REACH. BED IN LOWEST POSITION. WILL CONTINUE TO MONITOR UNTIL DAY SHIFT NURSE ASSUMES CARE.
[2022-11-16 05:00] LABS: BASOPHILS ABSOLUTE AUTO 0.11 K/mm3 (0.00-0.23); BASOPHILS PERCENT AUTO 1 % (0-2); EOSINOPHILS ABSOLUTE AUTO 0.17 K/mm3 (0.00-0.68); EOSINOPHILS PERCENT AUTO 1 % (0-6); Hematocrit 27.8 % (37.0-53.0); Hemoglobin 9.2 g/dL (13.5-17.5); IMMATURE GRAN ABSOLUTE AUTO 0.05 K/mm3 (0.00-0.10); IMMATURE GRAN PERCENT AUTO 0 % (0-1); LYMPHOCYTES ABSOLUTE AUTO 0.73 K/mm3 (0.84-5.20); LYMPHOCYTES PERCENT AUTO 5 % (21-46); MONOCYTES ABSOLUTE AUTO 1.18 K/mm3 (0.16-1.47); MONOCYTES PERCENT AUTO 8 % (4-13); Mean Corpuscular HGB 31.1 pg (26.0-34.0); Mean Corpuscular HGB Conc 33.1 g/dL (31.5-36.5); Mean Corpuscular Volume 94 fL (80-100); NEUTROPHILS ABSOLUTE AUTO 12.24 K/mm3 (1.96-9.15); NEUTROPHILS PERCENT AUTO 85 % (41-73); Platelet Count 295 K/mm3 (150-400); RDW Coefficient Variation 15.3 % (11.7-14.2); RDW Standard Deviation 52.7 fL (35.1-46.3); Red Blood Cell Count 2.96 M/mm3 (4.30-5.90); White Blood Cell Count 14.48 K/mm3 (4.00-11.30)
[2022-11-16 05:41] LABS: Albumin, Blood 2.1 g/dL (3.4-5.0); Albumin/Globulin Ratio 0.5 (0.8-1.8); Bilirubin, Total 0.4 mg/dL (0.1-1.0); Bun/Creatinine Ratio 22.3 (12.0-20.0); Calcium, Blood 8.3 mg/dL (8.5-10.1); Creatinine, Blood 1.57 mg/dL (0.60-1.20); Globulin, Blood 4.3 g/dL (2.2-4.0); Potassium, Blood 3.9 mmol/L (3.5-5.5); Total Protein, Blood 6.4 g/dL (6.4-8.2)
--- NOTE | 2022-11-16 12:24 | NUR ---
DISCHARGE SUMMARY DISCHARGE, FOLLOW UP, AND MEDICATION INSTRUCTIONS GIVEN TO PT. PT VOICED COMPLETE UNDERSTANDING AND HAS NO QUESTIONS AT THIS TIME. IV REMOVED WITH CATHETER TIP INTACT. PT AWAITING OXYGEN DELIVERY AND RIDE TO ARRIVE. WILL CONTINUE TO MONITOR. CALL LIGHT WITHIN REACH.
--- NOTE | 2022-11-16 16:47 | NUR ---
DISCHARGE SUMMARY NO ACUTE CHANGES DURING SHIFT. PT ALERT AND ORIENTED,CALLS APPORPRIATELY, [facility]. PT HAD MRI AND VLADIMIR COMPLETED, PENDING RESULTS. PAIN STILL NOTED TO R HIP, PRN PAIN MEDICATION GIVEN PER EMAR. CONTINUE IV ABX. PT SBA TO BATHROOM, ON RA. WILL CONTINUE TO MONITOR. CALL LIGHT WITHIN REACH.
--- NOTE | 2022-11-16 17:20 | NUR ---
PT DROWSY, BUT EASILY ROUSABLE POST PROCEDURE, DENIES PAIN, VSS.
--- NOTE | 2022-11-16 17:44 | NUR ---
REPORT TO ZEINA VALLADARES; ALL QUESTIONS ANSWERED. PT RETURNED TO ROOM 342 VIA W/C, CONDITION STABLE.
[2022-11-17 04:40] VITALS: BP 132/70
[2022-11-17 05:53] LABS: BASOPHILS ABSOLUTE AUTO 0.18 K/mm3 (0.00-0.23); BASOPHILS PERCENT AUTO 2 % (0-2); EOSINOPHILS ABSOLUTE AUTO 0.56 K/mm3 (0.00-0.68); EOSINOPHILS PERCENT AUTO 5 % (0-6); Hemoglobin 9.9 g/dL (13.5-17.5); IMMATURE GRAN ABSOLUTE AUTO 0.04 K/mm3 (0.00-0.10); IMMATURE GRAN PERCENT AUTO 0 % (0-1); LYMPHOCYTES ABSOLUTE AUTO 1.01 K/mm3 (0.84-5.20); LYMPHOCYTES PERCENT AUTO 9 % (21-46); MONOCYTES PERCENT AUTO 11 % (4-13); Mean Corpuscular HGB 30.9 pg (26.0-34.0); Mean Corpuscular Volume 94 fL (80-100); Mean Platelet Volume 9.5 fL (9.1-12.4); NEUTROPHILS ABSOLUTE AUTO 7.86 K/mm3 (1.96-9.15); NEUTROPHILS PERCENT AUTO 72 % (41-73); Platelet Count 348 K/mm3 (150-400); RDW Coefficient Variation 15.1 % (11.7-14.2); RDW Standard Deviation 52.4 fL (35.1-46.3); White Blood Cell Count 10.85 K/mm3 (4.00-11.30)
[2022-11-17 06:16] LABS: Albumin, Blood 2.2 g/dL (3.4-5.0); Albumin/Globulin Ratio 0.5 (0.8-1.8); Bilirubin, Total 0.3 mg/dL (0.1-1.0); Bun/Creatinine Ratio 23.1 (12.0-20.0); Calcium, Blood 8.5 mg/dL (8.5-10.1); Creatinine, Blood 1.6 mg/dL (0.60-1.20); Globulin, Blood 4.6 g/dL (2.2-4.0); Potassium, Blood 3.9 mmol/L (3.5-5.5); Total Protein, Blood 6.8 g/dL (6.4-8.2)
--- NOTE | 2022-11-17 06:28 | NUR ---
SHIFT SUMMARY PATIENT ALERT AND ORIENTED X4. MEDICATED PER EMAR FOR PAIN. HAD NO COMPLAINTS OF SHORTNESS OF BREATH. PATIENT ON ROOM AIR. VITAL SIGNS STABLE. NO ACUTE ISSUES NOTED OVERNIGHT. CALL LIGHT WITHIN REACH.
[2022-11-17 08:00] VITALS: BP 118/68
[2022-11-17 15:33] VITALS: BP 103/68
--- NOTE | 2022-11-17 17:55 | NUR ---
SHIFT SUMMARY NO ACUTE CHANGES DURING SHIFT. PT ALERT AND ORIENTED, CALLS APPROPRIATELY. PT SBA WITH FWW TO BATHROOM. PT AMBULATED IN HALLWAY WITH PHYSICAL THERAPY TODAY. PT PENDING PICC LINE PLACEMENT FOR LONGTERM ABX. PT REMAINS ON RA, MEDICATED WITH PRN PAIN MEDICATIONS X 2 DURING SHIFT. WILL CONTINUE TO MONITOR. CALL LIGHT WITHIN REACH.
[2022-11-17 20:51] VITALS: BP 126/73
[2022-11-18 05:17] VITALS: BP 107/61
[2022-11-18 05:40] LABS: BASOPHILS ABSOLUTE AUTO 0.13 K/mm3 (0.00-0.23); BASOPHILS PERCENT AUTO 2 % (0-2); EOSINOPHILS PERCENT AUTO 6 % (0-6); Hematocrit 26.7 % (37.0-53.0); Hemoglobin 8.7 g/dL (13.5-17.5); IMMATURE GRAN ABSOLUTE AUTO 0.03 K/mm3 (0.00-0.10); IMMATURE GRAN PERCENT AUTO 0 % (0-1); LYMPHOCYTES ABSOLUTE AUTO 0.94 K/mm3 (0.84-5.20); LYMPHOCYTES PERCENT AUTO 11 % (21-46); MONOCYTES ABSOLUTE AUTO 1.01 K/mm3 (0.16-1.47); MONOCYTES PERCENT AUTO 11 % (4-13); Mean Corpuscular HGB Conc 32.6 g/dL (31.5-36.5); Mean Corpuscular Volume 95 fL (80-100); Mean Platelet Volume 9.8 fL (9.1-12.4); NEUTROPHILS PERCENT AUTO 71 % (41-73); Platelet Count 319 K/mm3 (150-400); RDW Coefficient Variation 14.7 % (11.7-14.2); RDW Standard Deviation 52.1 fL (35.1-46.3); Red Blood Cell Count 2.81 M/mm3 (4.30-5.90); White Blood Cell Count 8.91 K/mm3 (4.00-11.30)
--- NOTE | 2022-11-18 05:50 | NUR ---
Summary: No acute events overnight. Patietn aox4. VSS. Independent in room. PRN meds given per emar. IV abx given. Plan for PICC line after negative blood culters for shelter IV abx.
[2022-11-18 06:09] LABS: Albumin, Blood 1.8 g/dL (3.4-5.0); Albumin/Globulin Ratio 0.4 (0.8-1.8); Bilirubin, Total 0.2 mg/dL (0.1-1.0); Bun/Creatinine Ratio 21.1 (12.0-20.0); Calcium, Blood 8.1 mg/dL (8.5-10.1); Creatinine, Blood 1.52 mg/dL (0.60-1.20); Potassium, Blood 3.7 mmol/L (3.5-5.5); Total Protein, Blood 5.8 g/dL (6.4-8.2)
[2022-11-18 08:15] VITALS: BP 125/67
--- NOTE | 2022-11-18 11:35 | NUR ---
PATIENT HAVING A PICC LINE PLACED FOR HOME ANTIBIOTICS
[2022-11-18] MEDS ORDERED: CEFTRIAXONE2 G1 IV (15:48)
[2022-11-18] MEDS ORDERED: TRAM50 PO (15:50)
== END 2022-11-18 16:36 | disposition home or self-care (01) | DRG 289 ==
LOC: ER 21:09 → MEDS 21:10
PROVIDERS: Family Medicine; Internal Medicine; Student in an Organized Health Care Education/Training Program; ADMIT Student in an Organized Health Care Education/Training Program
PROC: B24BZZ4 Ultrasonography of Heart with Aorta, Transesophageal (ICD-10-PCS; 2022-11-16)
PROC: 02HV33Z Insertion of Infusion Device into Superior Vena Cava, Percutaneous Approach (ICD-10-PCS; principal; 2022-11-18)
DX: I33.0 Acute and subacute infective endocarditis (principal); E87.1 Hypo-osmolality and hyponatremia; N39.0 Urinary tract infection, site not specified; I69.351 Hemiplegia and hemiparesis following cerebral infarction affecting right dominant side; R78.81 Bacteremia; I35.0 Nonrheumatic aortic (valve) stenosis; I25.10 Atherosclerotic heart disease of native coronary artery without angina pectoris; D50.9 Iron deficiency anemia, unspecified; M25.551 Pain in right hip; E11.65 Type 2 diabetes mellitus with hyperglycemia; E03.9 Hypothyroidism, unspecified; E78.2 Mixed hyperlipidemia; H91.90 Unspecified hearing loss, unspecified ear; N40.0 Benign prostatic hyperplasia without lower urinary tract symptoms; I12.9 Hypertensive chronic kidney disease with stage 1 through stage 4 chronic kidney disease, or unspecified chronic kidney disease; E11.22 Type 2 diabetes mellitus with diabetic chronic kidney disease; J45.909 Unspecified asthma, uncomplicated; E11.21 Type 2 diabetes mellitus with diabetic nephropathy; D63.1 Anemia in chronic kidney disease; N18.31 Chronic kidney disease, stage 3a; H52.4 Presbyopia; B95.61 Methicillin susceptible Staphylococcus aureus infection as the cause of diseases classified elsewhere; B95.4 Other streptococcus as the cause of diseases classified elsewhere; Z88.8 Allergy status to other drugs, medicaments and biological substances; Z79.82 Long term (current) use of aspirin; Z79.52 Long term (current) use of systemic steroids; Z87.19 Personal history of other diseases of the digestive system; Z79.899 Other long term (current) drug therapy; Z79.02 Long term (current) use of antithrombotics/antiplatelets; Z86.010 Personal history of colon polyps; Z95.2 Presence of prosthetic heart valve; Z79.84 Long term (current) use of oral hypoglycemic drugs; Z95.5 Presence of coronary angioplasty implant and graft; Z98.890 Other specified postprocedural states; Z90.49 Acquired absence of other specified parts of digestive tract; Z87.891 Personal history of nicotine dependence
CPT/HCPCS: 36415; 36569; 71045; 73502; 73721; 80053; 82947; 83036; 83605; 85025; 87040; 87184; 93306; 93312; 93325; 96365; 96372; 96376; 97116; 97162; 97165; 97530; 99152; 99284-25; A9270; C1751; G0378; J0690; J0696; J1644; J2250; J2310; J3010; J3370; J7030; J7050

== ENCOUNTER 2022-11-19 10:12 | Day surgery (SDC) | payer OTHER ==
[~2022-11-19 10:12] MED LIST changes: +AMLODIPINE BESYL5 MG PO; +CEFTRIAXONE2 G1 IV; +METFORMIN HCL500 M2 PO; +PIOG30 PO; +TAMSULOSIN HCL0.4 M1 PO; +TRAM50 PO
[2022-11-19 15:05] VITALS: BP 108/61
== END 2022-11-19 15:11 | disposition home or self-care (01) ==
LOC: ATC 10:12
DX: I33.0 Acute and subacute infective endocarditis (principal); I10 Essential (primary) hypertension; E78.5 Hyperlipidemia, unspecified; E11.9 Type 2 diabetes mellitus without complications; Z86.73 Personal history of transient ischemic attack (TIA), and cerebral infarction without residual deficits; Z87.891 Personal history of nicotine dependence; Z88.8 Allergy status to other drugs, medicaments and biological substances; Z79.84 Long term (current) use of oral hypoglycemic drugs; Z79.899 Other long term (current) drug therapy
CPT/HCPCS: 96374; J0696

== ENCOUNTER 2022-11-20 00:35 | Day surgery (SDC) | payer OTHER ==
[2022-11-20 11:28] VITALS: BP 130/69
== END 2022-11-20 11:35 | disposition home or self-care (01) ==
LOC: ATC 00:35
DX: I33.0 Acute and subacute infective endocarditis (principal); B95.5 Unspecified streptococcus as the cause of diseases classified elsewhere; E11.9 Type 2 diabetes mellitus without complications; E78.5 Hyperlipidemia, unspecified; I10 Essential (primary) hypertension; Z95.2 Presence of prosthetic heart valve; Z87.891 Personal history of nicotine dependence; Z88.8 Allergy status to other drugs, medicaments and biological substances; Z79.84 Long term (current) use of oral hypoglycemic drugs; Z79.899 Other long term (current) drug therapy
CPT/HCPCS: 96374; J0696

== ENCOUNTER 2022-11-21 00:32 | Day surgery (SDC) | payer OTHER ==
[2022-11-21 11:40] VITALS: BP 120/65
== END 2022-11-21 11:40 | disposition home or self-care (01) ==
LOC: ATC 00:32
DX: I33.0 Acute and subacute infective endocarditis (principal); B95.5 Unspecified streptococcus as the cause of diseases classified elsewhere; I10 Essential (primary) hypertension; E78.5 Hyperlipidemia, unspecified; E11.9 Type 2 diabetes mellitus without complications; Z86.73 Personal history of transient ischemic attack (TIA), and cerebral infarction without residual deficits; Z87.891 Personal history of nicotine dependence; Z88.8 Allergy status to other drugs, medicaments and biological substances; Z79.84 Long term (current) use of oral hypoglycemic drugs; Z79.899 Other long term (current) drug therapy
CPT/HCPCS: 96374; J0696

== ENCOUNTER 2022-11-22 00:15 | Day surgery (SDC) | payer OTHER ==
[2022-11-22 10:09] VITALS: BP 142/67
== END 2022-11-22 10:18 | disposition home or self-care (01) ==
LOC: ATC 00:15
DX: I33.0 Acute and subacute infective endocarditis (principal); B95.5 Unspecified streptococcus as the cause of diseases classified elsewhere; I10 Essential (primary) hypertension; E78.5 Hyperlipidemia, unspecified; E11.9 Type 2 diabetes mellitus without complications; Z86.73 Personal history of transient ischemic attack (TIA), and cerebral infarction without residual deficits; Z87.891 Personal history of nicotine dependence; Z88.8 Allergy status to other drugs, medicaments and biological substances; Z79.02 Long term (current) use of antithrombotics/antiplatelets; Z79.84 Long term (current) use of oral hypoglycemic drugs; Z79.899 Other long term (current) drug therapy
CPT/HCPCS: 96374; J0696

== ENCOUNTER 2022-11-23 00:04 | Day surgery (SDC) | payer OTHER ==
[2022-11-23 11:33] VITALS: BP 123/89
== END 2022-11-23 11:39 | disposition home or self-care (01) ==
LOC: ATC 00:04
DX: I33.0 Acute and subacute infective endocarditis (principal); B95.5 Unspecified streptococcus as the cause of diseases classified elsewhere; I10 Essential (primary) hypertension; E11.9 Type 2 diabetes mellitus without complications; E78.5 Hyperlipidemia, unspecified; Z87.891 Personal history of nicotine dependence; Z88.8 Allergy status to other drugs, medicaments and biological substances; Z79.84 Long term (current) use of oral hypoglycemic drugs; Z79.899 Other long term (current) drug therapy
CPT/HCPCS: 96374; J0696

== ENCOUNTER 2022-11-24 01:32 | Day surgery (SDC) | payer OTHER ==
[2022-11-24 11:36] VITALS: BP 129/67
== END 2022-11-24 11:39 | disposition home or self-care (01) ==
LOC: ATC 01:32
DX: I33.0 Acute and subacute infective endocarditis (principal); B95.5 Unspecified streptococcus as the cause of diseases classified elsewhere
CPT/HCPCS: 96374; J0696

== ENCOUNTER 2022-11-25 02:38 | Day surgery (SDC) | payer OTHER ==
[2022-11-25 11:30] VITALS: BP 129/59
== END 2022-11-25 11:45 | disposition home or self-care (01) ==
LOC: ATC 02:38
DX: I33.0 Acute and subacute infective endocarditis (principal); B95.5 Unspecified streptococcus as the cause of diseases classified elsewhere; I10 Essential (primary) hypertension; E78.5 Hyperlipidemia, unspecified; E11.9 Type 2 diabetes mellitus without complications; Z87.891 Personal history of nicotine dependence; Z88.8 Allergy status to other drugs, medicaments and biological substances; Z79.01 Long term (current) use of anticoagulants; Z79.890 Hormone replacement therapy; Z79.84 Long term (current) use of oral hypoglycemic drugs; Z79.899 Other long term (current) drug therapy
CPT/HCPCS: 96374; J0696

== ENCOUNTER 2022-11-26 02:47 | Day surgery (SDC) | payer OTHER ==
[2022-11-26 11:12] VITALS: BP 117/60
== END 2022-11-26 11:14 | disposition home or self-care (01) ==
LOC: ATC 02:47
DX: I33.0 Acute and subacute infective endocarditis (principal); B95.5 Unspecified streptococcus as the cause of diseases classified elsewhere; I10 Essential (primary) hypertension; E78.5 Hyperlipidemia, unspecified; E11.9 Type 2 diabetes mellitus without complications; Z95.2 Presence of prosthetic heart valve; Z88.8 Allergy status to other drugs, medicaments and biological substances; Z79.84 Long term (current) use of oral hypoglycemic drugs; Z79.02 Long term (current) use of antithrombotics/antiplatelets; Z79.899 Other long term (current) drug therapy
CPT/HCPCS: 96374; J0696

== ENCOUNTER 2022-11-27 03:43 | Day surgery (SDC) | payer OTHER ==
[2022-11-27 11:03] VITALS: BP 126/68
== END 2022-11-27 11:07 | disposition home or self-care (01) ==
LOC: ATC 03:43
DX: I33.0 Acute and subacute infective endocarditis (principal); B95.5 Unspecified streptococcus as the cause of diseases classified elsewhere; I10 Essential (primary) hypertension; E78.5 Hyperlipidemia, unspecified; E11.9 Type 2 diabetes mellitus without complications; Z88.8 Allergy status to other drugs, medicaments and biological substances; Z79.890 Hormone replacement therapy; Z79.84 Long term (current) use of oral hypoglycemic drugs; Z79.899 Other long term (current) drug therapy
CPT/HCPCS: 96374; J0696

== ENCOUNTER 2022-11-28 00:09 | Day surgery (SDC) | payer OTHER ==
[2022-11-28 11:23] VITALS: BP 119/60
== END 2022-11-28 11:25 | disposition home or self-care (01) ==
LOC: ATC 00:09
DX: I33.0 Acute and subacute infective endocarditis (principal); B95.5 Unspecified streptococcus as the cause of diseases classified elsewhere; I10 Essential (primary) hypertension; E78.5 Hyperlipidemia, unspecified; E11.9 Type 2 diabetes mellitus without complications; Z87.891 Personal history of nicotine dependence; Z88.8 Allergy status to other drugs, medicaments and biological substances; Z79.84 Long term (current) use of oral hypoglycemic drugs; Z79.899 Other long term (current) drug therapy
CPT/HCPCS: 96374; J0696

== ENCOUNTER 2022-11-29 04:08 | Day surgery (SDC) | payer OTHER ==
[2022-11-29 10:14] VITALS: BP 123/80
== END 2022-11-29 10:20 | disposition home or self-care (01) ==
LOC: ATC 04:08
DX: I33.0 Acute and subacute infective endocarditis (principal); B95.5 Unspecified streptococcus as the cause of diseases classified elsewhere; I10 Essential (primary) hypertension; E11.9 Type 2 diabetes mellitus without complications; E78.5 Hyperlipidemia, unspecified
CPT/HCPCS: 96374; J0696

== ENCOUNTER 2022-11-30 01:00 | Day surgery (SDC) | payer OTHER ==
[2022-11-30 11:24] VITALS: BP 136/69
== END 2022-11-30 11:28 | disposition home or self-care (01) ==
LOC: ATC 01:00
DX: I33.0 Acute and subacute infective endocarditis (principal); B95.5 Unspecified streptococcus as the cause of diseases classified elsewhere
CPT/HCPCS: 96374; J0696

== ENCOUNTER 2022-12-02 02:58 | Day surgery (SDC) | payer OTHER ==
[2022-12-02 11:09] VITALS: BP 112/63
== END 2022-12-02 11:25 | disposition home or self-care (01) ==
LOC: ATC 02:58
DX: I33.0 Acute and subacute infective endocarditis (principal); B95.5 Unspecified streptococcus as the cause of diseases classified elsewhere; I10 Essential (primary) hypertension; E11.9 Type 2 diabetes mellitus without complications; E78.5 Hyperlipidemia, unspecified; Z95.2 Presence of prosthetic heart valve; F17.200 Nicotine dependence, unspecified, uncomplicated; Z87.891 Personal history of nicotine dependence; Z88.8 Allergy status to other drugs, medicaments and biological substances; Z79.84 Long term (current) use of oral hypoglycemic drugs; Z79.899 Other long term (current) drug therapy
CPT/HCPCS: 96374; J0696

== ENCOUNTER 2022-12-03 00:27 | Day surgery (SDC) | payer OTHER ==
[2022-12-03 11:04] VITALS: BP 128/63
== END 2022-12-03 11:07 | disposition home or self-care (01) ==
LOC: ATC 00:27
DX: I33.0 Acute and subacute infective endocarditis (principal); B95.5 Unspecified streptococcus as the cause of diseases classified elsewhere; I10 Essential (primary) hypertension; E11.9 Type 2 diabetes mellitus without complications; E78.5 Hyperlipidemia, unspecified; Z95.2 Presence of prosthetic heart valve; Z86.73 Personal history of transient ischemic attack (TIA), and cerebral infarction without residual deficits; Z88.8 Allergy status to other drugs, medicaments and biological substances; Z79.890 Hormone replacement therapy; Z79.84 Long term (current) use of oral hypoglycemic drugs; Z79.899 Other long term (current) drug therapy
CPT/HCPCS: 96374; J0696

== ENCOUNTER 2022-12-04 01:46 | Day surgery (SDC) | payer OTHER ==
[2022-12-04 11:03] VITALS: BP 125/63
== END 2022-12-04 11:07 | disposition home or self-care (01) ==
LOC: ATC 01:46
DX: I33.0 Acute and subacute infective endocarditis (principal); B95.5 Unspecified streptococcus as the cause of diseases classified elsewhere; I10 Essential (primary) hypertension; E11.9 Type 2 diabetes mellitus without complications; E78.5 Hyperlipidemia, unspecified; Z95.2 Presence of prosthetic heart valve; Z87.891 Personal history of nicotine dependence; Z88.1 Allergy status to other antibiotic agents; Z79.01 Long term (current) use of anticoagulants; Z79.84 Long term (current) use of oral hypoglycemic drugs; Z79.890 Hormone replacement therapy; Z79.899 Other long term (current) drug therapy
CPT/HCPCS: 96374; J0696

== ENCOUNTER 2022-12-05 00:10 | Day surgery (SDC) | payer OTHER ==
[2022-12-05 11:08] VITALS: BP 128/59
== END 2022-12-05 11:12 | disposition home or self-care (01) ==
LOC: ATC 00:10
DX: I33.0 Acute and subacute infective endocarditis (principal); B95.5 Unspecified streptococcus as the cause of diseases classified elsewhere; I10 Essential (primary) hypertension; E11.9 Type 2 diabetes mellitus without complications; E78.5 Hyperlipidemia, unspecified; Z95.2 Presence of prosthetic heart valve; Z86.73 Personal history of transient ischemic attack (TIA), and cerebral infarction without residual deficits; Z87.891 Personal history of nicotine dependence; Z88.8 Allergy status to other drugs, medicaments and biological substances; Z79.890 Hormone replacement therapy; Z79.84 Long term (current) use of oral hypoglycemic drugs; Z79.899 Other long term (current) drug therapy
CPT/HCPCS: 96374; J0696

== ENCOUNTER 2022-12-06 00:28 | Day surgery (SDC) | payer OTHER ==
[2022-12-06 11:12] VITALS: BP 122/64
== END 2022-12-06 11:18 | disposition home or self-care (01) ==
LOC: ATC 00:28
DX: I33.0 Acute and subacute infective endocarditis (principal); B95.8 Unspecified staphylococcus as the cause of diseases classified elsewhere; I10 Essential (primary) hypertension; E11.9 Type 2 diabetes mellitus without complications; E78.5 Hyperlipidemia, unspecified; Z95.2 Presence of prosthetic heart valve; Z86.73 Personal history of transient ischemic attack (TIA), and cerebral infarction without residual deficits; Z87.891 Personal history of nicotine dependence; Z88.8 Allergy status to other drugs, medicaments and biological substances; Z79.890 Hormone replacement therapy; Z79.84 Long term (current) use of oral hypoglycemic drugs; Z79.899 Other long term (current) drug therapy
CPT/HCPCS: 96374; J0696

== ENCOUNTER 2022-12-07 02:35 | Day surgery (SDC) | payer OTHER ==
[2022-12-07 11:01] VITALS: BP 123/59
== END 2022-12-07 11:06 | disposition home or self-care (01) ==
LOC: ATC 02:35
DX: I33.0 Acute and subacute infective endocarditis (principal); B95.5 Unspecified streptococcus as the cause of diseases classified elsewhere; I10 Essential (primary) hypertension; E11.9 Type 2 diabetes mellitus without complications; E78.5 Hyperlipidemia, unspecified; Z95.2 Presence of prosthetic heart valve; Z86.73 Personal history of transient ischemic attack (TIA), and cerebral infarction without residual deficits; Z87.891 Personal history of nicotine dependence; Z88.8 Allergy status to other drugs, medicaments and biological substances; Z79.890 Hormone replacement therapy; Z79.84 Long term (current) use of oral hypoglycemic drugs; Z79.899 Other long term (current) drug therapy
CPT/HCPCS: 96374; J0696

== ENCOUNTER 2022-12-08 01:43 | Day surgery (SDC) | payer OTHER ==
[2022-12-08 11:24] VITALS: BP 117/54
== END 2022-12-08 11:30 | disposition home or self-care (01) ==
LOC: ATC 01:43
DX: I33.0 Acute and subacute infective endocarditis (principal); I10 Essential (primary) hypertension; E78.5 Hyperlipidemia, unspecified; Z86.73 Personal history of transient ischemic attack (TIA), and cerebral infarction without residual deficits; E11.9 Type 2 diabetes mellitus without complications
CPT/HCPCS: 96374; J0696

== ENCOUNTER 2022-12-10 01:25 | Day surgery (SDC) | payer OTHER ==
[2022-12-10 11:08] VITALS: BP 131/62
== END 2022-12-10 11:12 | disposition home or self-care (01) ==
LOC: ATC 01:25
DX: I33.0 Acute and subacute infective endocarditis (principal); B95.5 Unspecified streptococcus as the cause of diseases classified elsewhere
CPT/HCPCS: 96374; J0696

== ENCOUNTER 2022-12-18 03:35 | Day surgery (SDC) | payer OTHER ==
[2022-12-18 11:10] VITALS: BP 134/67
== END 2022-12-18 11:13 | disposition home or self-care (01) ==
LOC: ATC 03:35
DX: I33.0 Acute and subacute infective endocarditis (principal); B95.5 Unspecified streptococcus as the cause of diseases classified elsewhere; I10 Essential (primary) hypertension; E78.5 Hyperlipidemia, unspecified; E11.9 Type 2 diabetes mellitus without complications; Z95.2 Presence of prosthetic heart valve; Z86.73 Personal history of transient ischemic attack (TIA), and cerebral infarction without residual deficits; Z88.8 Allergy status to other drugs, medicaments and biological substances; Z79.84 Long term (current) use of oral hypoglycemic drugs; Z79.899 Other long term (current) drug therapy
CPT/HCPCS: J0696

== ENCOUNTER 2022-12-19 00:49 | Day surgery (SDC) | payer OTHER ==
[2022-12-19 11:17] VITALS: BP 121/72
== END 2022-12-19 11:22 | disposition home or self-care (01) ==
LOC: ATC 00:49
DX: I33.0 Acute and subacute infective endocarditis (principal); B95.5 Unspecified streptococcus as the cause of diseases classified elsewhere; I10 Essential (primary) hypertension; E11.9 Type 2 diabetes mellitus without complications; E78.5 Hyperlipidemia, unspecified; Z95.2 Presence of prosthetic heart valve; Z86.73 Personal history of transient ischemic attack (TIA), and cerebral infarction without residual deficits; Z87.891 Personal history of nicotine dependence; Z88.8 Allergy status to other drugs, medicaments and biological substances; Z79.02 Long term (current) use of antithrombotics/antiplatelets; Z79.84 Long term (current) use of oral hypoglycemic drugs; Z79.899 Other long term (current) drug therapy
CPT/HCPCS: 96374; J0696

== ENCOUNTER 2022-12-20 00:54 | Day surgery (SDC) | payer OTHER ==
[2022-12-20 11:12] VITALS: BP 137/60
== END 2022-12-20 11:15 | disposition home or self-care (01) ==
LOC: ATC 00:54
DX: I33.0 Acute and subacute infective endocarditis (principal); B95.5 Unspecified streptococcus as the cause of diseases classified elsewhere; I10 Essential (primary) hypertension; E78.5 Hyperlipidemia, unspecified; E11.9 Type 2 diabetes mellitus without complications; Z95.2 Presence of prosthetic heart valve; Z86.73 Personal history of transient ischemic attack (TIA), and cerebral infarction without residual deficits; Z88.8 Allergy status to other drugs, medicaments and biological substances; Z79.01 Long term (current) use of anticoagulants; Z79.890 Hormone replacement therapy; Z79.84 Long term (current) use of oral hypoglycemic drugs; Z79.899 Other long term (current) drug therapy
CPT/HCPCS: 96374; J0696

== ENCOUNTER 2022-12-21 00:57 | Day surgery (SDC) | payer OTHER ==
[2022-12-21 11:04] VITALS: BP 138/69
== END 2022-12-21 11:12 | disposition home or self-care (01) ==
LOC: ATC 00:57
DX: I33.0 Acute and subacute infective endocarditis (principal); B95.5 Unspecified streptococcus as the cause of diseases classified elsewhere; E11.9 Type 2 diabetes mellitus without complications; I10 Essential (primary) hypertension; Z86.73 Personal history of transient ischemic attack (TIA), and cerebral infarction without residual deficits; Z88.8 Allergy status to other drugs, medicaments and biological substances
CPT/HCPCS: 96374; J0696

== ENCOUNTER 2022-12-22 01:36 | Day surgery (SDC) | payer OTHER ==
[2022-12-22 11:15] VITALS: BP 133/71
== END 2022-12-22 11:14 | disposition home or self-care (01) ==
LOC: ATC 01:36
DX: I33.0 Acute and subacute infective endocarditis (principal); B95.5 Unspecified streptococcus as the cause of diseases classified elsewhere; B96.89 Other specified bacterial agents as the cause of diseases classified elsewhere; E11.9 Type 2 diabetes mellitus without complications; I10 Essential (primary) hypertension; Z86.73 Personal history of transient ischemic attack (TIA), and cerebral infarction without residual deficits; Z88.8 Allergy status to other drugs, medicaments and biological substances
CPT/HCPCS: J0696

== ENCOUNTER 2022-12-23 00:28 | Day surgery (SDC) | payer OTHER ==
[2022-12-23 11:13] VITALS: BP 139/61
== END 2022-12-23 11:06 | disposition home or self-care (01) ==
LOC: ATC 00:28
DX: I33.0 Acute and subacute infective endocarditis (principal); E78.5 Hyperlipidemia, unspecified; E11.9 Type 2 diabetes mellitus without complications; I10 Essential (primary) hypertension; Z86.73 Personal history of transient ischemic attack (TIA), and cerebral infarction without residual deficits; Z87.891 Personal history of nicotine dependence; Z88.8 Allergy status to other drugs, medicaments and biological substances
CPT/HCPCS: J0696

== ENCOUNTER 2022-12-24 02:54 | Day surgery (SDC) | payer OTHER ==
[2022-12-24 10:57] VITALS: BP 118/54
== END 2022-12-24 11:10 | disposition home or self-care (01) ==
LOC: ATC 02:54
DX: I33.0 Acute and subacute infective endocarditis (principal); B95.5 Unspecified streptococcus as the cause of diseases classified elsewhere; I10 Essential (primary) hypertension; E11.9 Type 2 diabetes mellitus without complications; E78.5 Hyperlipidemia, unspecified; Z95.2 Presence of prosthetic heart valve; Z86.73 Personal history of transient ischemic attack (TIA), and cerebral infarction without residual deficits; Z87.891 Personal history of nicotine dependence; Z88.8 Allergy status to other drugs, medicaments and biological substances; Z79.890 Hormone replacement therapy; Z79.84 Long term (current) use of oral hypoglycemic drugs; Z79.899 Other long term (current) drug therapy
CPT/HCPCS: 96374; J0696

== ENCOUNTER 2022-12-25 02:33 | Day surgery (SDC) | payer OTHER ==
[2022-12-25 11:09] VITALS: BP 133/60
== END 2022-12-26 11:06 | disposition home or self-care (01) ==
LOC: ATC 02:33
DX: I33.0 Acute and subacute infective endocarditis (principal); E78.5 Hyperlipidemia, unspecified; E11.9 Type 2 diabetes mellitus without complications; I10 Essential (primary) hypertension; Z86.73 Personal history of transient ischemic attack (TIA), and cerebral infarction without residual deficits; Z88.8 Allergy status to other drugs, medicaments and biological substances
CPT/HCPCS: 96374; J0696

== ENCOUNTER 2022-12-27 01:43 | Day surgery (SDC) | payer OTHER ==
[2022-12-27 11:05] VITALS: BP 135/65
== END 2022-12-27 11:05 | disposition home or self-care (01) ==
LOC: ATC 01:43
DX: I33.0 Acute and subacute infective endocarditis (principal); B95.5 Unspecified streptococcus as the cause of diseases classified elsewhere; I10 Essential (primary) hypertension; E11.9 Type 2 diabetes mellitus without complications; E78.5 Hyperlipidemia, unspecified; Z95.2 Presence of prosthetic heart valve; Z86.73 Personal history of transient ischemic attack (TIA), and cerebral infarction without residual deficits; Z87.891 Personal history of nicotine dependence; Z88.8 Allergy status to other drugs, medicaments and biological substances; Z79.84 Long term (current) use of oral hypoglycemic drugs; Z79.890 Hormone replacement therapy; Z79.899 Other long term (current) drug therapy
CPT/HCPCS: J0696

== ENCOUNTER 2022-12-28 00:08 | Day surgery (SDC) | payer OTHER ==
[2022-12-28 11:02] VITALS: BP 127/66
== END 2022-12-28 11:05 | disposition home or self-care (01) ==
LOC: ATC 00:08
DX: I33.0 Acute and subacute infective endocarditis (principal); B95.5 Unspecified streptococcus as the cause of diseases classified elsewhere
CPT/HCPCS: J0696

== ENCOUNTER 2022-12-30 03:34 | Day surgery (SDC) | payer OTHER | END 2022-12-30 22:58 | disposition home or self-care (01) | LOC: ATC 03:34 | DX: I33.0 Acute and subacute infective endocarditis (principal); B95.5 Unspecified streptococcus as the cause of diseases classified elsewhere; I10 Essential (primary) hypertension; E78.5 Hyperlipidemia, unspecified; E11.9 Type 2 diabetes mellitus without complications; Z95.2 Presence of prosthetic heart valve; Z86.73 Personal history of transient ischemic attack (TIA), and cerebral infarction without residual deficits; Z87.891 Personal history of nicotine dependence; Z88.8 Allergy status to other drugs, medicaments and biological substances; Z79.01 Long term (current) use of anticoagulants; Z79.890 Hormone replacement therapy; Z79.84 Long term (current) use of oral hypoglycemic drugs; Z79.899 Other long term (current) drug therapy ==

== ENCOUNTER → 2023-03-12 | Outpatient (CLI) | payer OTHER ==
[2023-03-12 13:32] LABS: Source, Urine Clean Catch
[2023-03-12 13:40] LABS: Appearance, Urine Clear (Clear); Bilirubin, Urine Neg (Neg); Blood, Urine Neg (Neg); Color, Urine Yellow (P-Yellow); Glucose Qualitative, Urine 4+ (Neg); Ketones, Urine 1+ (Neg); Leukocyte Esterase, Urine Neg (Neg); Nitrite, Urine Neg (Neg); Protein, Urine 3+ (Neg); Urobilinogen, Urine NORM (Normal)
[2023-03-12 13:56] LABS: Hyaline Casts 0-2 /lpf (0-2)
[2023-03-12 13:58] LABS: Bacteria Many /hpf; Squamous Epithelial Cells Few /hpf (Few)
== END ==
LOC: LAB 11:55 → LAB SHORT 11:55
PROVIDERS: Hospitalist
DX: I12.9 Hypertensive chronic kidney disease with stage 1 through stage 4 chronic kidney disease, or unspecified chronic kidney disease (principal); N18.32 Chronic kidney disease, stage 3b
CPT/HCPCS: 81001; 87086

== ENCOUNTER 2023-05-15 10:27 | Emergency (ER) | payer OTHER ==
[~2023-05-15] VITALS: Ht 175.3 cm; Wt 74.8 kg
[2023-05-15 11:34] LABS: BASOPHILS ABSOLUTE AUTO 0.14 K/mm3 (0.00-0.23); BASOPHILS PERCENT AUTO 1 % (0-2); EOSINOPHILS ABSOLUTE AUTO 0.72 K/mm3 (0.00-0.68); EOSINOPHILS PERCENT AUTO 7 % (0-6); Hematocrit 36.7 % (37.0-53.0); Hemoglobin 12.3 g/dL (13.5-17.5); IMMATURE GRAN ABSOLUTE AUTO 0.06 K/mm3 (0.00-0.10); IMMATURE GRAN PERCENT AUTO 1 % (0-1); LYMPHOCYTES ABSOLUTE AUTO 1.38 K/mm3 (0.84-5.20); LYMPHOCYTES PERCENT AUTO 14 % (21-46); MONOCYTES ABSOLUTE AUTO 0.92 K/mm3 (0.16-1.47); MONOCYTES PERCENT AUTO 9 % (4-13); Mean Corpuscular HGB 33.1 pg (26.0-34.0); Mean Corpuscular HGB Conc 33.5 g/dL (31.5-36.5); Mean Corpuscular Volume 99 fL (80-100); Mean Platelet Volume 10.1 fL (9.1-12.4); NEUTROPHILS ABSOLUTE AUTO 6.56 K/mm3 (1.96-9.15); NEUTROPHILS PERCENT AUTO 67 % (41-73); Platelet Count 230 K/mm3 (150-400); RDW Coefficient Variation 13.2 % (11.7-14.2); RDW Standard Deviation 47.1 fL (35.1-46.3); Red Blood Cell Count 3.72 M/mm3 (4.30-5.90); White Blood Cell Count 9.78 K/mm3 (4.00-11.30)
[2023-05-15 12:19] LABS: Source, Urine Clean Catch
[2023-05-15 12:46] LABS: Appearance, Urine Clear (Clear); Bilirubin, Urine Neg (Neg); Blood, Urine 1+ (Neg); Color, Urine Yellow (P-Yellow); Glucose Qualitative, Urine 4+ (Neg); Ketones, Urine Neg (Neg); Leukocyte Esterase, Urine Neg (Neg); Nitrite, Urine Neg (Neg); Protein, Urine 3+ (Neg); Specific Gravity, Urine 1.015 (1.003-1.022); Urobilinogen, Urine NORM (Normal)
[2023-05-15 12:49] LABS: Albumin/Globulin Ratio 0.9 (0.8-1.8); Bilirubin, Total 0.4 mg/dL (0.1-1.0); Bun/Creatinine Ratio 25.5 (12.0-20.0); Calcium, Blood 8.3 mg/dL (8.5-10.1); Creatinine, Blood 1.65 mg/dL (0.60-1.20); Globulin, Blood 3.5 g/dL (2.2-4.0); Potassium, Blood 4.5 mmol/L (3.5-5.5); Total Protein, Blood 6.5 g/dL (6.4-8.2)
[2023-05-15 13:22] LABS: Bacteria Few /hpf; Squamous Epithelial Cells Rare /hpf (Few); White Blood Cells, Urine 0-2 /hpf (0-5)
[2023-05-15 14:00] VITALS: BP 154/82
== END 2023-05-15 14:02 | disposition home or self-care (01) ==
LOC: ER 10:27
PROVIDERS: Emergency Medicine
DX: E11.65 Type 2 diabetes mellitus with hyperglycemia (principal); E86.0 Dehydration; Z86.73 Personal history of transient ischemic attack (TIA), and cerebral infarction without residual deficits; Z95.2 Presence of prosthetic heart valve
CPT/HCPCS: 80053; 81001; 82947; 85025; 96360; 99283-25; A9270; J7030

== ENCOUNTER 2024-07-14 22:50 | Emergency (ER) | payer OTHER ==
[~2024-07-14] VITALS: Ht 175.3 cm; Wt 74.8 kg
[~2024-07-14 22:50] MED LIST changes: +ASPIR 8181 MG PO; -CHOL10002 PO; +FERSU300 PO; +FURO20 PO; +GLIMEPIRIDE2 M2 PO; +LOSARTAN POTAS100 MG PO; -LOSARTAN POTASS25 MG PO; +VITAMIN D31250 MC2
[2024-07-14 23:41] LABS: BASOPHILS ABSOLUTE AUTO 0.12 K/mm3 (0.00-0.23); BASOPHILS PERCENT AUTO 1 % (0-2); EOSINOPHILS ABSOLUTE AUTO 0.43 K/mm3 (0.00-0.68); EOSINOPHILS PERCENT AUTO 3 % (0-6); Hematocrit 32.7 % (37.0-53.0); Hemoglobin 10.3 g/dL (13.5-17.5); IMMATURE GRAN ABSOLUTE AUTO 0.06 K/mm3 (0.00-0.10); IMMATURE GRAN PERCENT AUTO 1 % (0-1); LYMPHOCYTES ABSOLUTE AUTO 0.38 K/mm3 (0.84-5.20); LYMPHOCYTES PERCENT AUTO 3 % (21-46); MONOCYTES ABSOLUTE AUTO 0.51 K/mm3 (0.16-1.47); MONOCYTES PERCENT AUTO 4 % (4-13); Mean Corpuscular HGB Conc 31.5 g/dL (31.5-36.5); Mean Corpuscular Volume 102 fL (80-100); Mean Platelet Volume 10.7 fL (9.1-12.4); NEUTROPHILS ABSOLUTE AUTO 11.76 K/mm3 (1.96-9.15); NEUTROPHILS PERCENT AUTO 89 % (41-73); Platelet Count 215 K/mm3 (150-400); RDW Coefficient Variation 14.8 % (11.7-14.2); RDW Standard Deviation 56.1 fL (35.1-46.3); Red Blood Cell Count 3.22 M/mm3 (4.30-5.90); White Blood Cell Count 13.26 K/mm3 (4.00-11.30)
[2024-07-15 00:13] LABS: Albumin, Blood 3.2 g/dL (3.4-5.0); Albumin/Globulin Ratio 0.7 (0.8-1.8); Bilirubin, Total 0.5 mg/dL (0.1-1.0); Bun/Creatinine Ratio 14.7 (12.0-20.0); Calcium, Blood 8.9 mg/dL (8.5-10.1); Creatinine, Blood 2.45 mg/dL (0.60-1.20); Globulin, Blood 4.3 g/dL (2.2-4.0); Potassium, Blood 4.2 mmol/L (3.5-5.5); Total Protein, Blood 7.5 g/dL (6.4-8.2)
[2024-07-15 01:53] VITALS: BP 145/59
[2024-07-15] MEDS ORDERED: Amoxicillin/Clavulanate K 875 MG Tab PO ONE (02:30)
[2024-07-15] MEDS ORDERED: AMOCLA875 PO (02:31)
[2024-07-16] MEDS ORDERED: FLUT.05NI (13:14)
[2024-07-16] MEDS ORDERED: SILD50TA PO (13:26)
== END 2024-07-15 02:45 | disposition home or self-care (01) ==
LOC: ER 22:50
PROVIDERS: Physician Assistant
DX: J69.0 Pneumonitis due to inhalation of food and vomit (principal); E78.00 Pure hypercholesterolemia, unspecified; I10 Essential (primary) hypertension; E11.9 Type 2 diabetes mellitus without complications; Z79.02 Long term (current) use of antithrombotics/antiplatelets; Z79.899 Other long term (current) drug therapy; Z79.82 Long term (current) use of aspirin; Z88.8 Allergy status to other drugs, medicaments and biological substances; Z86.73 Personal history of transient ischemic attack (TIA), and cerebral infarction without residual deficits
CPT/HCPCS: 71046; 80053; 83880; 85025; 93005; 93010; 99284-25; A9270

== ENCOUNTER 2024-07-15 08:57 | Inpatient (IN) | payer OTHER ==
[~2024-07-15] VITALS: Ht 172.7 cm; Wt 73.4 kg
[~2024-07-15 08:57] MED LIST changes: +AMOCLA875 PO
[2024-07-15] MEDS ORDERED: Ipratropium/Albuterol SulF 2.5-0.5MG/3 ML Amp INH ONE (09:35)
[2024-07-15] MEDS ORDERED: Albuterol 2.5 MG/3 ML VIAL INH ONE (09:50)
[2024-07-15] MEDS ORDERED: MethylPREDNISolone Sod Succ 125 MG Vial IV ONE (09:55)
[2024-07-15] MEDS ORDERED: Furosemide 10 MG/ML 4ML Vial IV ONE (10:25)
[2024-07-15] MEDS ORDERED: LORazepam 2 MG/ML 1ML Injection IV ONE (10:25)
[2024-07-15 10:33] LABS: BASOPHILS ABSOLUTE AUTO 0.08 K/mm3 (0.00-0.23); BASOPHILS PERCENT AUTO 1 % (0-2); EOSINOPHILS ABSOLUTE AUTO 0.01 K/mm3 (0.00-0.68); EOSINOPHILS PERCENT AUTO 0 % (0-6); Hematocrit 31.1 % (37.0-53.0); IMMATURE GRAN ABSOLUTE AUTO 0.05 K/mm3 (0.00-0.10); IMMATURE GRAN PERCENT AUTO 0 % (0-1); LYMPHOCYTES ABSOLUTE AUTO 0.38 K/mm3 (0.84-5.20); LYMPHOCYTES PERCENT AUTO 3 % (21-46); MONOCYTES ABSOLUTE AUTO 0.77 K/mm3 (0.16-1.47); MONOCYTES PERCENT AUTO 6 % (4-13); Mean Corpuscular HGB 31.5 pg (26.0-34.0); Mean Corpuscular HGB Conc 32.2 g/dL (31.5-36.5); Mean Corpuscular Volume 98 fL (80-100); Mean Platelet Volume 11.5 fL (9.1-12.4); NEUTROPHILS ABSOLUTE AUTO 10.77 K/mm3 (1.96-9.15); NEUTROPHILS PERCENT AUTO 89 % (41-73); Platelet Count 226 K/mm3 (150-400); RDW Standard Deviation 54.8 fL (35.1-46.3); Red Blood Cell Count 3.17 M/mm3 (4.30-5.90); White Blood Cell Count 12.06 K/mm3 (4.00-11.30)
[2024-07-15 10:46] LABS: Bun/Creatinine Ratio 16.1 (12.0-20.0); Calcium, Blood 8.9 mg/dL (8.5-10.1); Creatinine, Blood 2.42 mg/dL (0.60-1.20); Potassium, Blood 4.3 mmol/L (3.5-5.5)
[2024-07-15 11:08] LABS: Influenza B, PCR NEGATIVE (NEGATIVE); Resp Syncytial Virus, PCR NEGATIVE (NEGATIVE); SARS-Cov-2 (COVID-19) PCR, MMC NEGATIVE (NEGATIVE)
[2024-07-15 11:14] LABS: Base Excess Venous -9.7 mmol/L; Bicarbonate Venous 17.5 mmol/L (24.0-30.0); PCO2 Venous 28.4 mmHg (38-42); pH Blood Venous 7.35 (7.34-7.37)
[2024-07-15 11:49] LABS: Influenza A, PCR POSITIVE (NEGATIVE)
[2024-07-15] MEDS ORDERED: Ondansetron 4 MG TAB PO PRN (11:55)
[2024-07-15] MEDS ORDERED: Ondansetron HCl 2 MG / ML 2ML Vial IV PRN (11:55)
[2024-07-15] MEDS ORDERED: Bisacodyl 10 MG Supp PR PRN (11:55)
[2024-07-15] MEDS ORDERED: Acetaminophen 325 MG TABLET PO PRN (12:00)
[2024-07-15] MEDS ORDERED: Metoclopramide HCl 5MG / ML 2ML Vial IV PRN (12:00)
[2024-07-15] MEDS ORDERED: FLU VACC TS2024-25(6MOS UP)/PF 45 MCG/0.5 ML SYRINGE IM SCH (12:00)
[2024-07-15] MEDS ORDERED: Magnesium Hydroxide Conc 10 ML UDC PO PRN (12:00)
[2024-07-15 14:47] VITALS: BP 126/51
[2024-07-15] MEDS ORDERED: Insulin Human Lispro 100 Units/ML 3ML Syringe SC SCH (16:35)
[2024-07-15 16:59] VITALS: BP 125/60
--- NOTE | 2024-07-15 17:03 | NUR ---
SHIFT SUMMARY patient arrived to pcu at 1421. patient on 4l nc when arriving and titrated down to 2l nc with spo2 >90%. patient reprots no shortness of breath when arriving. patient is alert and oriented x4. patient has a history of cva with right sided deficits. denies pain, chest pain/pressure or shortness of breath. patient is able to void using bedside urinal and is one person assist. patient is limited in motion on right arm and leg. see shift assessment for further detials. patient med rec not complete, and family to bring in home med list tomorrow. this rn will pass along to noc rn to pass along to day shift tomorrow. plan of care is up to date
[2024-07-15] MEDS ORDERED: Azithromycin 500 MG in NS 250 ML IV SCH (17:20)
[2024-07-15] MEDS ORDERED: CefTRIAXone Sodium 1,000 MG in NS 100 ML IV SCH (17:25)
[2024-07-15] MEDS ORDERED: Furosemide 10 MG/ML 4ML Vial IV SCH (18:00)
[2024-07-15] MEDS ORDERED: TraMADol HCl 50 MG Tab PO PRN (19:00)
[2024-07-15] MEDS ORDERED: Insulin Glargine-Yfgn 100 Unit/mL 3 ML SYR SC SCH (19:40)
[2024-07-15] MEDS ORDERED: Oseltamvir Phosphate 30 MG Cap PO SCH (20:00)
[2024-07-15 20:35] VITALS: BP 115/59
[2024-07-15 22:07] LABS: Base Excess Venous -3.1 mmol/L; Bicarbonate Venous 22.2 mmol/L (24.0-30.0); PCO2 Venous 30.9 mmHg (38-42); pH Blood Venous 7.44 (7.34-7.37)
[2024-07-15 22:50] LABS: Alanine Aminotransfer (ALT/SGP 14 U/L (12-78); Albumin, Blood 2.8 g/dL (3.4-5.0); Albumin/Globulin Ratio 0.7 (0.8-1.8); Alk Phos 59 U/L (50-136); Anion Gap 14 mmol/L (3-11); Aspartate Aminotrans (AST/SGOT <3 U/L (12-37); Bilirubin, Total 0.3 mg/dL (0.1-1.0); Blood Urea Nitrogen 45 mg/dL (8-24); Bun/Creatinine Ratio 16.7 (12.0-20.0); CO2, Blood 21 mmol/L (21-32); Calcium, Blood 8.7 mg/dL (8.5-10.1); Chloride, Blood 108 mmol/L (98-108); Globulin, Blood 3.9 g/dL (2.2-4.0); Glomerular Filtration Rate 23 (60-); Glucose, Blood 265 mg/dL (70-99); Potassium, Blood 3.7 mmol/L (3.5-5.5); Sodium, Blood 139 mmol/L (136-145); Total Protein, Blood 6.7 g/dL (6.4-8.2)
[2024-07-16 00:12] VITALS: BP 116/62
[2024-07-16 04:14] VITALS: BP 107/67
--- NOTE | 2024-07-16 04:56 | NUR ---
PT REMAINS A&OX4. VSS AND NOW ON RA >90%. PT USED BIPAP UNTIL 0. PT TITRATED DOWN TO ROOM AIR. PT SWITCHED TO MEDIUM SLIDING SCALE WITH ADDITIONAL 20U OF GLARGINE GIVEN PER SEP. PTS CBG CHECKED Q4HR. AT 0400 PTS CBG WAS 60. JUICE GIVEN TO PT. RESIDENT NOTIFIED. PTS CBG RECHECKED 15MIN LATER WITH A READING OF 71. PT CONTINUES TO HAVE A WET CONGESTED COUGH. PT USING URINAL AT BEDSIDE WITH ASSIST. NO FURTHER QUESTIONS OR CONCERNS AT THIS TIME. WILL CONTINUE TO MONITOR UNTIL REPORT GIVEN TO ONCOMING NURSE.
[2024-07-16 05:20] LABS: BASOPHILS ABSOLUTE AUTO 0.02 K/mm3 (0.00-0.23); BASOPHILS PERCENT AUTO 0 % (0-2); EOSINOPHILS PERCENT AUTO 0 % (0-6); Hematocrit 27.2 % (37.0-53.0); Hemoglobin 8.9 g/dL (13.5-17.5); IMMATURE GRAN ABSOLUTE AUTO 0.07 K/mm3 (0.00-0.10); IMMATURE GRAN PERCENT AUTO 1 % (0-1); LYMPHOCYTES ABSOLUTE AUTO 0.49 K/mm3 (0.84-5.20); LYMPHOCYTES PERCENT AUTO 4 % (21-46); MONOCYTES ABSOLUTE AUTO 0.82 K/mm3 (0.16-1.47); MONOCYTES PERCENT AUTO 7 % (4-13); Mean Corpuscular HGB 31.9 pg (26.0-34.0); Mean Corpuscular HGB Conc 32.7 g/dL (31.5-36.5); Mean Corpuscular Volume 98 fL (80-100); Mean Platelet Volume 11.3 fL (9.1-12.4); NEUTROPHILS ABSOLUTE AUTO 10.48 K/mm3 (1.96-9.15); NEUTROPHILS PERCENT AUTO 88 % (41-73); Platelet Count 197 K/mm3 (150-400); RDW Coefficient Variation 14.8 % (11.7-14.2); RDW Standard Deviation 53.7 fL (35.1-46.3); Red Blood Cell Count 2.79 M/mm3 (4.30-5.90); White Blood Cell Count 11.88 K/mm3 (4.00-11.30)
[2024-07-16 05:59] LABS: Albumin, Blood 2.6 g/dL (3.4-5.0); Albumin/Globulin Ratio 0.7 (0.8-1.8); Bilirubin, Total 0.4 mg/dL (0.1-1.0); Bun/Creatinine Ratio 17.3 (12.0-20.0); Calcium, Blood 8.9 mg/dL (8.5-10.1); Creatinine, Blood 2.83 mg/dL (0.60-1.20); Globulin, Blood 3.8 g/dL (2.2-4.0); Magnesium, Blood 2.1 mg/dL (1.6-2.4); Total Protein, Blood 6.4 g/dL (6.4-8.2)
[2024-07-16] MEDS ORDERED: Levothyroxine Sodium 0.1 MG Tab PO SCH (06:00)
[2024-07-16] MEDS ORDERED: Aspirin 81 MG TabEC PO SCH (09:00)
[2024-07-16] MEDS ORDERED: Tamsulosin HCl 0.4 MG Cap PO SCH (09:00)
[2024-07-16] MEDS ORDERED: Clopidogrel Bisulfate 75 MG Tab PO SCH (09:00)
[2024-07-16] MEDS ORDERED: Atorvastatin 10 MG Tab PO SCH (09:00)
[2024-07-16] MEDS ORDERED: Furosemide 10 MG/ML 4ML Vial IV SCH (09:00)
[2024-07-16] MEDS ORDERED: Enoxaparin 30 MG/0.3 ML SYR SC SCH (09:00)
[2024-07-16 09:22] VITALS: BP 113/56
[2024-07-16 12:31] VITALS: BP 122/52
[2024-07-16] MEDS ORDERED: FLUT.05NI (13:14)
[2024-07-16] MEDS ORDERED: SILD50TA PO (13:26)
[2024-07-16] MEDS ORDERED: Fluticasone 0.05% Nasal Spray PRN (14:25)
[2024-07-16] MEDS ORDERED: Glimepiride 1 MG Tablet PO SCH (15:00)
[2024-07-16] MEDS ORDERED: Pioglitazone HCl 15 MG Tab PO SCH (15:00)
[2024-07-16 17:02] VITALS: BP 119/64
--- NOTE | 2024-07-16 17:29 | NUR ---
SHIFT SUMMERY/ TRANSFER NOTE: NEURO: PT A&OX4. FOLLOWS COMMANDS AND MAKES NEEDS KNOW TO STAFF. NO ACUTE NEURO CHANGES CARDIAC: PT REMAINED FREE OF ANY CP, PRESSURE OR TIGHTNESS DURING SHIFT. VSS. MAP >65. PT IS ON TELE. RESP: PT WAS TAKEN OFF OF O2 AND IS MAINTIAING O2 SATS >90% ON RA. GI/: PT WAS CONTINENT/INCONTINENT TODAY. WAS ABLE TO GET UP TO THE COMMODE WITH 1P ASSIST AND HAVE A BOWEL MOVEMENT. PT WAS TRANSFERED TO ROOM 362 VIA WHEELCHAIR BY TENANT COORDINATOR AT APPROX 1630. FAMILY NOTIFIED BY THIS RN. BELONGINGS WERE COLLECTED AND TAKEN WITH PT. NO SIGNIFICANT EVENTS HAPPENED DURING THIS SHIFT.
[2024-07-16] MEDS ORDERED: NS 250 ML IV PRN (17:50)
[2024-07-16] MEDS ORDERED: Insulin Human Lispro 100 Units/ML 3ML Syringe SC SCH ×2 (18:05)
--- NOTE | 2024-07-16 18:34 | NUR ---
TRANSFER NOTE/SHIFT SUMMARY PT CAME UP FROM PCU 7 VIA WHEELCHAIR. INSULIN PENS, GLARGINE/HUMALOG, GLIMEPERIDE AND FLONASE BROUGHT UP FROM PCU. PT ON ROOM AIR. BIPAP AT NIGHT. PATIENT BASELINE IS ROOM AIR AND DOES NOT USE CPAP OR BIPAP AT HOME. INITIALLY PERFUSION TO HANDS WERE NOT PICKING UP PULSE OX READING WELL, CHAGNED TO TEMPORAL PROBE. SATTING ABOVE 90% ON ROOM AIR. PATIENT HAS HX OF CVA WITH RIGHT SIDED WEAKNESS. RIGHT ARM/HAND LIMTITED ROM/STRENGTH. RIGHT LEG STRENGTH INTACT BUT SLIGHTLY WEAKER THAN LEFT. LUNGS ARE CRACKLY IN BASES. PT HAS NONPRODUCTIVE COUGH. IS SOB WHEN LYING DOWN ON ROOM AIR. PT IS SITTING AT EOB EATING DINNER. NEEDS ASSISTANCE WTIH URINAL OTHERWISE WILL MAKE A MESS WITH ONLY ONE HAND TO USE. CONTINENT BUT HAS URINARY URGENCY. BRIEF IN PLACE, CHANGED PRN SOILAGE. MUMBLED SPEECH FROM CVA HX. FAMILY EDUCATED ON DROPLET PRECAUTIONS. ABLE TO MAKE NEEDS KNOWN. CALL LIGHT IN REACH. BED ALARM ON.
[2024-07-16 20:18] VITALS: BP 119/76
[2024-07-16] MEDS ORDERED: Banana Flakes/Tos 1 EA Powder Pack PO SCH (21:00)
[2024-07-17] MEDS ORDERED: METOPROLOL SUCC25 MG PO (00:21)
[2024-07-17] MEDS ORDERED: FUROSEMIDE20 MG PO (00:25)
[2024-07-17] MEDS ORDERED: POTASSIUM CITR10 ME2 PO (00:25)
[2024-07-17] MEDS ORDERED: SILDENAFIL CIT100 MG PO (00:27)
[2024-07-17] MEDS ORDERED: TRADJENTA5 MG PO (00:29)
[2024-07-17 02:28] VITALS: BP 126/72
--- NOTE | 2024-07-17 04:39 | NUR ---
AAO X3. USES CALL LIGHT FOR NEEDS. HX OF CVA WITH R SIDE DEFICITS. X1 TO BSC. TELE IN PLACE. O2 DROPPED DOWN TO 85%, BIPAP MACHINE ON AND OFF THROUGH NIGHT, D/T PT'S TOLERANCE. REC'D BANATROL PER PT'S REQUEST FOR LOOSE STOOLS. HE USES THE URINAL IN BED WITH MINIMAL ASSISTANCE 2 L FLUID RESTICTION WITH I&O'S. PT/OT TO EVALUATE PT.RUE IV ACESS FOR ROCEPHIN AND ZITHROMAX. DROPLET PRECAUTIONS FOR INFLUENZA A, RECIVING REANL DOSE TAMIFLU. FAMILY VERY INVOLVED WITH CARE.
[2024-07-17 07:52] LABS: BASOPHILS ABSOLUTE AUTO 0.09 K/mm3 (0.00-0.23); BASOPHILS PERCENT AUTO 1 % (0-2); EOSINOPHILS ABSOLUTE AUTO 0.15 K/mm3 (0.00-0.68); EOSINOPHILS PERCENT AUTO 2 % (0-6); Hematocrit 28.5 % (37.0-53.0); Hemoglobin 9.3 g/dL (13.5-17.5); IMMATURE GRAN ABSOLUTE AUTO 0.03 K/mm3 (0.00-0.10); IMMATURE GRAN PERCENT AUTO 0 % (0-1); LYMPHOCYTES ABSOLUTE AUTO 0.64 K/mm3 (0.84-5.20); LYMPHOCYTES PERCENT AUTO 7 % (21-46); MONOCYTES ABSOLUTE AUTO 0.53 K/mm3 (0.16-1.47); MONOCYTES PERCENT AUTO 6 % (4-13); Mean Corpuscular HGB 31.8 pg (26.0-34.0); Mean Corpuscular HGB Conc 32.6 g/dL (31.5-36.5); Mean Corpuscular Volume 98 fL (80-100); Mean Platelet Volume 11.3 fL (9.1-12.4); NEUTROPHILS ABSOLUTE AUTO 7.56 K/mm3 (1.96-9.15); NEUTROPHILS PERCENT AUTO 84 % (41-73); Platelet Count 197 K/mm3 (150-400); RDW Coefficient Variation 14.7 % (11.7-14.2); Red Blood Cell Count 2.92 M/mm3 (4.30-5.90)
[2024-07-17 08:15] LABS: Albumin, Blood 2.4 g/dL (3.4-5.0); Albumin/Globulin Ratio 0.6 (0.8-1.8); Bilirubin, Total 0.3 mg/dL (0.1-1.0); Bun/Creatinine Ratio 20.8 (12.0-20.0); Calcium, Blood 8.2 mg/dL (8.5-10.1); Creatinine, Blood 2.5 mg/dL (0.60-1.20); Globulin, Blood 3.9 g/dL (2.2-4.0); Potassium, Blood 3.6 mmol/L (3.5-5.5); Total Protein, Blood 6.3 g/dL (6.4-8.2)
[2024-07-17 08:52] VITALS: BP 134/64
[2024-07-17 16:22] VITALS: BP 106/60
--- NOTE | 2024-07-17 19:05 | NUR ---
SHIFT SUMMARY PT WAS SATTING WELL ON 2L NC THIS AM. AFTER WORKING WITH PHYSICAL THERAPY PATIENT DESATTED DOWNT O 82% AND WAS NOT RECOVERING. PLACED PATIENT ON BIPAP FOR ABOUT 20 MINUTES BEFORE REPLACING NASAL CANNULA AT 4L. PT HAS HEAD OF BED ELEVATED, IS ON CONTINUOUS PULSE OX. URINARY URGENCY. ABLE TO MAKE NEEDS KNOWN. CALL LIGHT IN REACH.
[2024-07-17 19:32] VITALS: BP 120/71
[2024-07-18 03:40] VITALS: BP 117/74
[2024-07-18 05:34] LABS: BASOPHILS ABSOLUTE AUTO 0.08 K/mm3 (0.00-0.23); BASOPHILS PERCENT AUTO 2 % (0-2); EOSINOPHILS ABSOLUTE AUTO 0.56 K/mm3 (0.00-0.68); EOSINOPHILS PERCENT AUTO 10 % (0-6); Hemoglobin 8.7 g/dL (13.5-17.5); IMMATURE GRAN ABSOLUTE AUTO 0.02 K/mm3 (0.00-0.10); IMMATURE GRAN PERCENT AUTO 0 % (0-1); LYMPHOCYTES ABSOLUTE AUTO 0.88 K/mm3 (0.84-5.20); LYMPHOCYTES PERCENT AUTO 16 % (21-46); MONOCYTES ABSOLUTE AUTO 0.52 K/mm3 (0.16-1.47); MONOCYTES PERCENT AUTO 10 % (4-13); Mean Corpuscular HGB 31.8 pg (26.0-34.0); Mean Corpuscular HGB Conc 32.2 g/dL (31.5-36.5); Mean Corpuscular Volume 99 fL (80-100); Mean Platelet Volume 11.2 fL (9.1-12.4); NEUTROPHILS PERCENT AUTO 62 % (41-73); Platelet Count 193 K/mm3 (150-400); RDW Coefficient Variation 14.8 % (11.7-14.2); RDW Standard Deviation 53.6 fL (35.1-46.3); Red Blood Cell Count 2.74 M/mm3 (4.30-5.90); White Blood Cell Count 5.46 K/mm3 (4.00-11.30)
--- NOTE | 2024-07-18 05:34 | NUR ---
SHIFT SUMMARY PATIENT IS ALERT AND ORIENTED. PATIENT HAS HAD NO ACUTE EVENTS THIS SHIFT. PATIENT HAS BEEN SATTING WELL AT 4L NC. PATIENT HAS HAD NO COMPLAINTS OF SOB, NAUSEA, PAIN, OR VOMITTING THIS SHIFT. PATIENT HAS BEEN RESTING MOST OF SHIFT. BED IN LOCKEED AND LOWEST POSITION. CALL LIGHT IN PLACE. WILL MONITOR UNTIL SHIFT CHANGE.
[2024-07-18 06:18] LABS: Bun/Creatinine Ratio 24.4 (12.0-20.0); Calcium, Blood 7.7 mg/dL (8.5-10.1); Creatinine, Blood 2.42 mg/dL (0.60-1.20); Potassium, Blood 3.3 mmol/L (3.5-5.5)
[2024-07-18 07:29] VITALS: BP 128/63
[2024-07-18] MEDS ORDERED: Alogliptin Benzoate 6.25 MG TABLET PO SCH (09:00)
[2024-07-18 17:04] VITALS: BP 112/65
--- NOTE | 2024-07-18 18:23 | NUR ---
PT IS A&OX4, VSS AND ON 3LNC. PT HAD NO C/O PAIN DURING THE SHIFT. CONTINUEING WITH IV ABX.
[2024-07-18 20:37] VITALS: BP 122/61
[2024-07-19 03:52] VITALS: BP 115/73
--- NOTE | 2024-07-19 04:12 | NUR ---
SHIFT SUMMARY PATIENT SLEPT IN LONG INTERVALS, DID GIVE PRN TYLENOL FOR GENERAL DISCOMFORTS. CBG'S WNL DID NOT REQUIRE COVERAGE. TELE SR @ 64 WITH FREQUENT PAC'S. PATIENT PLEASANT TO WORK WITH. STATES HIS BREATHING IS MUCH EASIER.
[2024-07-19 04:44] LABS: BASOPHILS ABSOLUTE AUTO 0.08 K/mm3 (0.00-0.23); BASOPHILS PERCENT AUTO 2 % (0-2); EOSINOPHILS ABSOLUTE AUTO 0.87 K/mm3 (0.00-0.68); EOSINOPHILS PERCENT AUTO 18 % (0-6); Hematocrit 26.2 % (37.0-53.0); Hemoglobin 8.3 g/dL (13.5-17.5); IMMATURE GRAN ABSOLUTE AUTO 0.02 K/mm3 (0.00-0.10); IMMATURE GRAN PERCENT AUTO 0 % (0-1); LYMPHOCYTES ABSOLUTE AUTO 0.82 K/mm3 (0.84-5.20); LYMPHOCYTES PERCENT AUTO 17 % (21-46); MONOCYTES ABSOLUTE AUTO 0.41 K/mm3 (0.16-1.47); MONOCYTES PERCENT AUTO 8 % (4-13); Mean Corpuscular HGB 31.4 pg (26.0-34.0); Mean Corpuscular HGB Conc 31.7 g/dL (31.5-36.5); Mean Corpuscular Volume 99 fL (80-100); NEUTROPHILS ABSOLUTE AUTO 2.67 K/mm3 (1.96-9.15); NEUTROPHILS PERCENT AUTO 55 % (41-73); Platelet Count 185 K/mm3 (150-400); RDW Coefficient Variation 14.6 % (11.7-14.2); RDW Standard Deviation 52.7 fL (35.1-46.3); Red Blood Cell Count 2.64 M/mm3 (4.30-5.90); White Blood Cell Count 4.87 K/mm3 (4.00-11.30)
[2024-07-19 05:15] LABS: Bun/Creatinine Ratio 25.5 (12.0-20.0); Calcium, Blood 7.7 mg/dL (8.5-10.1); Creatinine, Blood 2.39 mg/dL (0.60-1.20); Potassium, Blood 3.3 mmol/L (3.5-5.5)
[2024-07-19 07:17] VITALS: BP 124/59
[2024-07-19] MEDS ORDERED: Empagliflozin 10 MG TAB PO SCH (09:00)
--- NOTE | 2024-07-19 10:49 | NUR ---
PHONE CALL RECIEVED FROM DR BERMEO, ORDER TO PLEASE GIVE TONIGHTS DOSE OF ROCEPHIN AND TAMIFLU AT NOON TODAY PRIOR TO DISCHARGE.
[2024-07-19] MEDS ORDERED: CefTRIAXone Sodium 1,000 MG in NS 100 ML IV SCH (12:00)
[2024-07-19] MEDS ORDERED: Oseltamvir Phosphate 30 MG Cap PO SCH (12:00)
[2024-07-19 15:04] VITALS: BP 112/65
--- NOTE | 2024-07-19 17:00 | NUR ---
pt was discharged home with portable oxygen. pt and family had no questions or concerns. all iv's removed.
== END 2024-07-19 16:48 | disposition home health service (06) | DRG 193 ==
LOC: ER 08:57 → ERHOLD 11:52 → PCU 14:16 → MEDS 07-16 16:35 → ENPENDDIS 07-19 11:33 → MEDS 07-19 16:48
PROVIDERS: Emergency Medicine; Family Medicine; Student in an Organized Health Care Education/Training Program; ADMIT Internal Medicine
PROC: 5A09457 Assistance with Respiratory Ventilation, 24-96 Consecutive Hours, Continuous Positive Airway Pressure (ICD-10-PCS; principal; 2024-07-15)
DX: J10.00 Influenza due to other identified influenza virus with unspecified type of pneumonia (principal); I50.43 Acute on chronic combined systolic (congestive) and diastolic (congestive) heart failure; J96.01 Acute respiratory failure with hypoxia; I13.0 Hypertensive heart and chronic kidney disease with heart failure and stage 1 through stage 4 chronic kidney disease, or unspecified chronic kidney disease; I69.351 Hemiplegia and hemiparesis following cerebral infarction affecting right dominant side; N17.9 Acute kidney failure, unspecified; E87.20 Acidosis, unspecified; E78.00 Pure hypercholesterolemia, unspecified; D50.9 Iron deficiency anemia, unspecified; I25.10 Atherosclerotic heart disease of native coronary artery without angina pectoris; E87.70 Fluid overload, unspecified; I48.91 Unspecified atrial fibrillation; I44.4 Left anterior fascicular block; I27.20 Pulmonary hypertension, unspecified; I35.2 Nonrheumatic aortic (valve) stenosis with insufficiency; E11.22 Type 2 diabetes mellitus with diabetic chronic kidney disease; N40.0 Benign prostatic hyperplasia without lower urinary tract symptoms; E11.65 Type 2 diabetes mellitus with hyperglycemia; N18.31 Chronic kidney disease, stage 3a; D63.1 Anemia in chronic kidney disease; Z88.8 Allergy status to other drugs, medicaments and biological substances; Z79.899 Other long term (current) drug therapy; Z79.84 Long term (current) use of oral hypoglycemic drugs; Z79.891 Long term (current) use of opiate analgesic; Z79.82 Long term (current) use of aspirin; Z79.890 Hormone replacement therapy; Z79.2 Long term (current) use of antibiotics; Z90.49 Acquired absence of other specified parts of digestive tract; Z90.89 Acquired absence of other organs; Z98.890 Other specified postprocedural states; Z95.2 Presence of prosthetic heart valve; Z87.891 Personal history of nicotine dependence
CPT/HCPCS: 0241U; 36415; 51798; 71045; 78580; 80048; 80053; 82010; 82803; 82947; 83605; 83735; 83880; 84484; 85025; 85379; 87040; 87086; 93005; 93010; 94644; 94660; 94664; 94761; 94762; 96374; 96375; 97110; 97116; 97162; 97165; 97530; 97530-CO; 97535; 99285-25; A9270; A9540; C8929; J0456; J0696; J1650; J1815; J1940; J2060; J2919; J7050; Q9957

== ENCOUNTER → 2024-09-03 | Outpatient (CLI) | payer OTHER ==
[~2024-09-03] MED LIST changes: +FLUT.05NI; +FUROSEMIDE20 MG PO; +METOPROLOL SUCC25 MG PO; +POTASSIUM CITR10 ME2 PO; +SILD50TA PO; +SILDENAFIL CIT100 MG PO
[2024-09-03 15:07] LABS: Bun/Creatinine Ratio 14.4 (12.0-20.0); Calcium, Blood 8.5 mg/dL (8.5-10.1); Creatinine, Blood 2.43 mg/dL (0.60-1.20); Potassium, Blood 4.5 mmol/L (3.5-5.5)
== END ==
LOC: LAB 14:59 → LAB SHORT 14:59
PROVIDERS: Emergency Medicine
DX: I50.9 Heart failure, unspecified (principal)
CPT/HCPCS: 80048

== ENCOUNTER 2024-10-29 17:56 | Emergency (ER) | payer OTHER ==
[~2024-10-29] VITALS: Ht 172.7 cm; Wt 70.3 kg
[2024-10-29 18:05] VITALS: BP 135/96
[2024-10-29] MEDS ORDERED: Silver Nitr/Potassium Nitrate 1 EA APPL TOP ONE (18:10)
[2024-10-29] MEDS ORDERED: Oxymetazoline 0.05% Nasal Relief Spray 15mL BTL ONE (19:20)
== END 2024-10-29 19:54 | disposition home or self-care (01) ==
LOC: ER 17:56
DX: R04.0 Epistaxis (principal); E78.00 Pure hypercholesterolemia, unspecified; I10 Essential (primary) hypertension; E11.9 Type 2 diabetes mellitus without complications; Z86.73 Personal history of transient ischemic attack (TIA), and cerebral infarction without residual deficits; Z87.891 Personal history of nicotine dependence; Z79.51 Long term (current) use of inhaled steroids; Z79.02 Long term (current) use of antithrombotics/antiplatelets; Z79.82 Long term (current) use of aspirin; Z79.84 Long term (current) use of oral hypoglycemic drugs; Z79.899 Other long term (current) drug therapy; Z88.8 Allergy status to other drugs, medicaments and biological substances
CPT/HCPCS: 30901; 99283-25; A9270

== ENCOUNTER 2024-11-04 06:54 | Emergency (ER) | payer OTHER ==
[~2024-11-04] VITALS: Ht 175.3 cm; Wt 70.3 kg
[2024-11-04 09:00] VITALS: BP 133/63
== END 2024-11-04 09:15 | disposition home or self-care (01) ==
LOC: ER 06:54
DX: R04.0 Epistaxis (principal); Z86.73 Personal history of transient ischemic attack (TIA), and cerebral infarction without residual deficits; Z88.8 Allergy status to other drugs, medicaments and biological substances; Z79.890 Hormone replacement therapy; Z79.01 Long term (current) use of anticoagulants; Z79.84 Long term (current) use of oral hypoglycemic drugs; Z79.82 Long term (current) use of aspirin; Z79.899 Other long term (current) drug therapy
CPT/HCPCS: 99283

== ENCOUNTER 2025-02-15 16:49 | Emergency (ER) | payer OTHER ==
[~2025-02-15] VITALS: Ht 175.3 cm; Wt 65.8 kg
[2025-02-15] MEDS ORDERED: Tranexamic Acid 100 ML IV ONE (18:40)
[2025-02-15 18:53] LABS: Alanine Aminotransfer (ALT/SGP 56.0 U/L (12-78); Albumin, Blood 2.9 g/dL (3.4-5.0); Albumin/Globulin Ratio 0.7 (0.8-1.8); Anion Gap 10.0 mmol/L (3-11); Aspartate Aminotrans (AST/SGOT 10.0 U/L (12-37); Bilirubin, Total 0.4 mg/dL (0.1-1.0); Blood Urea Nitrogen 42.0 mg/dL (8-24); CO2, Blood 21.0 mmol/L (21-32); Calcium, Blood 8.1 mg/dL (8.5-10.1); Chloride, Blood 108.0 mmol/L (98-108); Creatinine, Blood 2.24 mg/dL (0.60-1.20); Globulin, Blood 4.3 g/dL (2.2-4.0); Glucose, Blood 379.0 mg/dL (70-99); Potassium, Blood 4.5 mmol/L (3.5-5.5); Sodium, Blood 134.0 mmol/L (136-145); Total Protein, Blood 7.2 g/dL (6.4-8.2)
[2025-02-15 18:59] LABS: BASOPHILS ABSOLUTE AUTO 0.17 K/mm3 (0.00-0.23); BASOPHILS PERCENT AUTO 2 % (0-2); EOSINOPHILS ABSOLUTE AUTO 0.69 K/mm3 (0.00-0.68); EOSINOPHILS PERCENT AUTO 9 % (0-6); Hematocrit 35.4 % (37.0-53.0); Hemoglobin 11.5 g/dL (13.5-17.5); IMMATURE GRAN ABSOLUTE AUTO 0.03 K/mm3 (0.00-0.10); IMMATURE GRAN PERCENT AUTO 0 % (0-1); LYMPHOCYTES ABSOLUTE AUTO 1.04 K/mm3 (0.84-5.20); LYMPHOCYTES PERCENT AUTO 13 % (21-46); MONOCYTES ABSOLUTE AUTO 0.64 K/mm3 (0.16-1.47); MONOCYTES PERCENT AUTO 8 % (4-13); Mean Corpuscular HGB Conc 32.5 g/dL (31.5-36.5); Mean Corpuscular Volume 95 fL (80-100); NEUTROPHILS ABSOLUTE AUTO 5.40 K/mm3 (1.96-9.15); NEUTROPHILS PERCENT AUTO 68 % (41-73); NRBC ABSOLUTE 0.00 K/mm3 (0.00-0.02); NRBC Auto 0.0 /100 WBC (0.0-0.2); Platelet Count 244 K/mm3 (150-400); RDW Coefficient Variation 15.0 % (11.7-14.2); RDW Standard Deviation 52.0 fL (35.1-46.3)
[2025-02-15] MEDS ORDERED: Tranexamic Acid 1000 MG/10 ML 10ML Vial (SDV) TOP ONE (19:10)
[2025-02-15 20:11] LABS: Prothrombin Time Results 11.2 Sec (9.7-11.5)
[2025-02-15 21:41] VITALS: BP 143/66
== END 2025-02-15 21:45 | disposition home or self-care (01) ==
LOC: ER 16:49
PROVIDERS: Student in an Organized Health Care Education/Training Program
DX: K91.840 Postprocedural hemorrhage of a digestive system organ or structure following a digestive system procedure (principal); Z88.8 Allergy status to other drugs, medicaments and biological substances; Z79.899 Other long term (current) drug therapy; Z79.890 Hormone replacement therapy; Z87.891 Personal history of nicotine dependence
CPT/HCPCS: 80053; 85025; 85610; 85730; 99283